=== PATIENT | female | born 1980 | race Caucasian/White ===

== ENCOUNTER 2018-08-26 17:51 | Emergency (ER) | payer MEDICARE, SELFPAY ==
[2018-08-26 17:59] VITALS: BP 118/89; PULSE 69; RESP 14; TEMP 36.7; O2SAT 98
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
[2018-08-26 18:27] LABS: Abs Immature Grans 0.02 k/cumm (0.0-0.09); Absolute Basophil Count 0.03 k/cumm (0.0-0.2); Absolute Eosinophil Count 0.07 k/cumm (0.0-0.7); Absolute Lymphocyte Count 2.45 k/cumm (1.2-3.4); Absolute Monocyte Count 1.06 k/cumm (0.11-0.7); Absolute Neutrophil Count 7.75 k/cumm (1.2-6.7); Basophils % 0.3; Eosinophils % 0.6; HCT 37.9 % (36.0-46.0); HGB 12.4 g/dL (12.0-15.5); Immature Grans % 0.2; Lymphocytes % 21.5; Mean Corp. HGB Concentration 32.7 g/dL (32.0-36.0); Mean Corpuscular Hemoglobin 26.3 pg (27.0-33.0); Mean Corpuscular Volume 80.5 fL (80-95); Mean Platelet Volume 8.8 fL (8.0-11.0); Monocytes % 9.3; Neutrophils % 68.1; Platelet Count 330 x1000/uL (130-400); RBC 4.71 m/cumm (4.00-5.20); RBC Distribution Width 14.5 % (11.7-14.6); White Blood Cell Count 11.38 k/cumm (4.4-10.8)
[2018-08-26 18:40] LABS: ALT 21 U/L (12-78); AST 21 U/L (15-37); Albumin 3.6 g/dL (3.4-5.0); Alkaline Phosphatase 72 U/L (46-116); Anion Gap 7.2 mmol/L (3-11); BUN 9 mg/dL (7-18); Bilirubin, Total 0.3 mg/dL (0.2-1.0); CO2 28.8 mmol/L (21.0-32.0); CREATININE 0.78 mg/dL (0.55-1.02); Calcium 8.8 mg/dL (8.5-10.1); Chloride 102 mmol/L (98-107); Glucose 107 mg/dL (70-100); Potassium 3.7 mmol/L (3.5-5.1); Sodium 138 mmol/L (136-145); Total Protein 7.6 g/dL (6.4-8.2)
[2018-08-26] MEDS: Omnipaque 350 MG/ML 100 ML BTL IJ (19:02)
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
[2018-08-26 20:29] VITALS: BP 133/70; PULSE 61; RESP 20; TEMP 36.7; O2SAT 98
== END 2018-08-26 20:33 | disposition home or self-care (01) ==
PROVIDERS: Emergency Provider Student in an Organized Health Care Education/Training Program; PCP Nurse Practitioner Family
DX: M54.2 Cervicalgia (principal); R07.89 Other chest pain; M25.512 Pain in left shoulder; M54.9 Dorsalgia, unspecified; Y04.0XXA Assault by unarmed brawl or fight, initial encounter
CPT/HCPCS: 36415; 74177; 80053; 81025; 99285; 70450; 71260; 72125; 85025; 99284; J3490; L0172

== ENCOUNTER 2019-05-20 12:47 | Emergency (ER) | payer MEDICARE, SELFPAY ==
[2019-05-20 13:09] VITALS: BP 155/84; PULSE 79; RESP 16; TEMP 36.5; O2SAT 99
--- NOTE | 2019-05-20 13:52 | ED.GENADUL_ITS ---
Discharge Plan Disposition Patient Disposition: HOME Condition: Stable Discharge Details Chief Complaint: GenMedical Clinical Impression: Dyspnea, Contact with potentially hazardous substance Primary Care Provider: None,None ED Provider: Carol Walton Home Meds and New Rx's Prescriptions: No Action Otc Migraine Med 2 tab PO PRN PRNRF: 0 Discharge Instructions Instructions: Dyspnea (ED) Additional Instructions: The most likely effects from exposure to the rustoleum include dizziness and shortness of breath which usually resolve quickly. As your oxygen level is normal and lungs are clear, it is expected that symptoms will continue to improve. Follow-up with your primary care doctor in 1 week as needed. Return to the emergency department with any worsening or new concerning symptoms. Discharge Data Discharge Date/Time-TO BE ENTERED AT DEPARTURE: 05/20/19 14:10 Discharge Physician: Carol Walton Medical Decision Making 39yo F presents for dizziness and shortness of breath that occurred after exposure to rustoleum enamel spray. Patient states she was spraying the inside of her freezer when shortly after, she felt dizziness and shortness of breath. She states her son had similar symptoms and they both went outside to the fresh air for approximately 30 minutes and she feels much better. She denies any symptoms at present. She states she came here for evaluation. BP minimally hypertensive, otherwise vitals within normal limits. Demonstrates no signs of respiratory distress. Normal oropharynx. Lungs clear. Case discussed with poison control who noted that usual side effects include dizziness and shortness of breath but likely resolve with time. As patient stepped into the fresh air, this is the most efficient recommended treatment. No other acute interventions or recommendations needed. Patient feels good to go home. Advised to follow up with the primary care doctor for re-evaluation as needed. Usual and customary return precautions given prior to discharge. HPI General Mode of arrival: ambulatory . Date/Time Provider Initiated Documentation: 05/20/19 13:10 . Limitations to Documentation: no limitations . Information obtained by: patient . History of Present Illness 39 year old F presents to the emergency department with the chief complaint of dizziness and shortness of breath after exposure to rustoleum enamel spray, Patient started experiencing this hour(s) (3) and it has been now resolved. other things that improve symptom(s), (going into fresh air for 30 minutes) No exacerbating factors reported . Patient notes shortness of breath; denies chest pain, cough, diaphoresis, fever/chills, headaches, loss of appetite, malaise, nausea/vomiting, rash, seizure, syncope and weakness. Patient did receive the following treatments prior to arrival, none Related Data Home Medications Medication Instructions Recorded Confirmed Otc Migraine Med 2 tab PO PRN PRN 04/17/15 08/26/18 Allergies Allergy/AdvReac Type Severity Reaction Status Date / Time methadone [Methadone] Allergy Severe heart stops Unverified 05/20/19 13:14 acetaminophen AdvReac Severe Tachycardia Unverified 05/20/19 13:14 [From Excedrin Back & Body] and violent shaking aspirin AdvReac Severe Tachycardia Unverified 05/20/19 13:14 [From Excedrin Back & Body] and violent shaking calcium carbonate AdvReac Severe Tachycardia Unverified 05/20/19 13:14 [From Excedrin Back & Body] and violent shaking tramadol AdvReac Intermediate Unverified 05/20/19 13:14 codeine AdvReac Nausea Unverified 05/20/19 13:14 Bee stings AdvReac Intermediate Swelling Uncoded 05/20/19 13:14 Cranberries AdvReac Intermediate Violent Uncoded 05/20/19 13:14 vomiting General Stated Complaint: GenMedical HAMIDA: 4 Review of Systems All systems reviewed & are unremarkable except as noted in HPI and below Constitutional Constitutional: Reports as per HPI, Denies chills and Denies fever(s) Eyes Eyes: Denies blurry vision ENT Ears, Nose, Mouth, and Throat: Reports dizziness, Denies sore throat and Denies throat swelling Cardiovascular Cardiovascular: Denies chest pain and Reports dyspnea Respiratory Respiratory: Denies cough and Reports dyspnea Gastrointestinal Gastrointestinal: Denies abdominal pain, Denies diarrhea and Denies vomiting Genitourinary Genitourinary: Denies hematuria and Denies dysuria Musculoskeletal Musculoskeletal: Denies back pain and Denies numbness Integumentary/Breasts Skin/Breast: Denies lesions and Denies rash Neurologic Neurologic: Reports dizziness, Denies focal weakness and Denies numbness Allergic/Immunologic Allergic/Immunologic: Denies throat swelling [facility] Medical History Abscess of labia majora (11/08/13) R sided - upper vestibular gland. Rx with abx. Chronic back pain s/p Henderson Reynaldo. Pt reports that it is broken. Not taking any meds for pain, no PCP. Heavy menses Declines Mirena. s/p 1st DepoProvera 08/2015. Scoliosis Tobacco use Surgical History section 2006 Diagnostic Laproscopy ovarian cyst. Dilation and curettage SAB Spinal Fusion with henderson rods that per pt's report, have become displaced. Family History Mother No problems noted. Social History Smoking/Tobacco Use Status: Current every day Tobacco Type: cigarettes Drug use: Occasionally Substance use type: marijuana Do you feel safe at home: No Do you feel safe in your relationship?: No Exam Const General: cooperative, healthy appearing and no acute distress HENMT Head: normal to inspection Ears: hearing grossly normal bilaterally and external ears normal General nose exam: external nose normal Face and sinus: normal facial exam Mouth: oral mucosae normal Throat: posterior oropharynx normal Eyes General: appearance normal, both eyes and all related structures EOM: EOM intact bilaterally Neck Neck: normal visual inspection and No submandibular swelling Lymphatic: no lymphadenopathy noted Chest Chest: normal inspection of the chest and no tenderness Resp Effort & Inspection: normal respiratory effort and able to speak in complete sentences Auscultation: clear to auscultation bilaterally Cardio Rate: regular rate Rhythm: regular rhythm GI Inspection: normal to inspection Palpation: soft, not firm, not rigid and nontender Auscultation: normal bowel sounds Skin General skin exam: no rashes or lesions noted Neuro General: alert, awake and oriented x3 Cognition: normal cognition Speech: speech normal Motor: muscle tone normal throughout Sensory Exam: no sensory deficits noted Extrem General: normal to inspection, full ROM, normal capillary refill, no calf tenderness bilaterally and no edema Psych Appearance: grossly normal Mental Status: mental status grossly normal Speech and Movement: speech and movement normal Affect: normal affect Course Vital Signs Vital signs: Vital Signs Temperature 97.7 F 05/20/19 13:09 Pulse 79 05/20/19 13:09 Respiratory Rate 16 05/20/19 13:09 Blood Pressure 155/84 H 05/20/19 13:09 Pulse Oximetry 99 05/20/19 13:09 Temperature 97.7 F 05/20/19 13:09 Temperature Source Skin 05/20/19 13:09 Pulse 79 05/20/19 13:09 Respiratory Rate 16 05/20/19 13:09 Respiratory Effort Non-Labored 05/20/19 13:09 Blood Pressure 155/84 H 05/20/19 13:09 Blood Pressure Position Sitting 05/20/19 13:09 Pulse Oximetry 99 05/20/19 13:09 Pain Level 6 05/20/19 13:09 Comment 05/20/19 13:09
[2019-05-20 14:17] VITALS: RESP 16
== END 2019-05-20 14:10 | disposition home or self-care (01) ==
PROVIDERS: Emergency Provider Physician Assistant
DX: R06.09 Other forms of dyspnea (principal); Z77.29 Contact with and (suspected) exposure to other hazardous substances
CPT/HCPCS: 99281

== ENCOUNTER 2019-07-26 17:02 | Emergency (ER) | payer MEDICARE, SELFPAY ==
[2019-07-26 17:06] VITALS: BP 119/90; PULSE 86; RESP 18; TEMP 36.7; O2SAT 97
--- NOTE | 2019-07-26 17:20 | ED.GENADUL_ITS ---
Discharge Plan Disposition Patient Disposition: HOME Condition: Good Discharge Details Chief Complaint: DentalOral Clinical Impression: Dental infection, Oral thrush Primary Care Provider: None,None ED Provider: Radha Delcid Home Meds and New Rx's Prescriptions: New clotrimazole 10 mg silvana 10 mg MM 5X/DAY 14 Days Qty: 70 RF: 0 penicillin V potassium 500 mg tablet 500 mg PO QID 7 Days Qty: 28 RF: 0 Continued Otc Migraine Med 2 tab PO PRN PRNRF: 0 Discharge Instructions Instructions: Dental Abscess (ED), Oral Candidiasis (ED) Additional Instructions: Please encourage water intake. Please take the clotrimazole troches and the penicillin as prescribed for thrush as well as possible dental infection. I would like for you to be followed up by primary care next week. Our healthcare representative will reach out to you on Monday to schedule follow-up appointment. If you develop fever/chills, swelling, increased pain or other new/worsening symptoms please seek care urgently once again. You also need follow-up with a dentist, attached his list of local dentist. Stand Alone Forms: PENDING COVID-19 TESTING Discharge Data Discharge Date/Time-TO BE ENTERED AT DEPARTURE: 07/26/19 17:35 Medical Decision Making Patient is a 39-year-old female presenting today with chief complaint of dental pain. She reports her pain is maximal in the left lower jawline but is also endorsing diffuse mouth discomfort. She reports that she has had oral candidiasis in the past and this feels quite similar. States she does have pain with eating but is able to swallow without any discomfort. Has been continue to try to hydrate. Is a 10 treat discomfort at home. She denies any history of HIV, immunocompromise. No new sexual contacts. Denies any recent travel. No shortness of breath. No recent fevers or chills. On exam, patient appears nontoxic. She does have focal tenderness of the left lower jawline with no appreciable swelling or fluctuance. I am concerned for possible emergence of a dental infection. In light of that, patient also has notable ulcers on the lateral aspect of the tongue as well as lateral aspects of the wall of the oropharynx. No changes in the posterior oropharynx. No swelling is appreciated. She is no swelling under the tongue or the tongue itself. She does have a thick white layer on the posterior aspect of the tongue consistent with the patient's concern for possible oral candidiasis. Fever glucose 126. Will prescribe antibiotic for possible dental infection as well as clotrimazole for her recurrent candidal infection. We did discuss my concern for immunocompromise but she is quite sure that she has never had any exposure to HIV, she denies any drug use again, no new sexual partners. I did advise that she should discuss this further with her primary care physician. I also encourage that she follow-up closely with a dentist and she will need further definitive care. She was given return precautions. Questions and concerns were addressed and she is agreement this plan. Patient did call back at the time of discharge and advised that she was not able to tolerate the charges and is requesting oral tablets. I did call in oral fluconazole to local pharmacy of her choice.. HPI General Mode of arrival: ambulatory . Date/Time Provider Initiated Documentation: 07/26/19 17:20 . Limitations to Documentation: no limitations . Information obtained by: patient and RN notes reviewed . History of Present Illness 39 year old F presents to the emergency department with the chief complaint of dental pain left lower jaw, described as severe and similar to prior episodes (hx ), with intensity rated at 10. Quality is described as sharp, and is localized to the mouth. Patient reports no radiation. Patient started experiencing this week(s) (1) and it has been constant. No relieving factors improve symptom(s), Eating worsens symptoms . Patient notes no other symptoms.; denies fever/chills, loss of appetite, nausea/vomiting, rash and shortness of breath. Patient did receive the following treatments prior to arrival, none Related Data Home Medications Medication Instructions Recorded Confirmed Otc Migraine Med 2 tab PO PRN PRN 04/17/15 07/26/19 clotrimazole 10 mg MM 5X/DAY 14 Days #70 tab 07/26/19 penicillin V potassium 500 mg PO QID 7 Days #28 tab 07/26/19 Previous Rx's Medication Instructions Recorded clotrimazole 10 mg MM 5X/DAY 14 Days #70 tab 07/26/19 penicillin V potassium 500 mg PO QID 7 Days #28 tab 07/26/19 Allergies Allergy/AdvReac Type Severity Reaction Status Date / Time methadone [Methadone] Allergy Severe heart stops Unverified 07/26/19 17:12 acetaminophen AdvReac Severe Tachycardia Unverified 07/26/19 17:12 [From Excedrin Back & Body] and violent shaking aspirin AdvReac Severe Tachycardia Unverified 07/26/19 17:12 [From Excedrin Back & Body] and violent shaking calcium carbonate AdvReac Severe Tachycardia Unverified 07/26/19 17:12 [From Excedrin Back & Body] and violent shaking tramadol AdvReac Intermediate Unverified 07/26/19 17:12 codeine AdvReac Nausea Unverified 07/26/19 17:12 Bee stings AdvReac Intermediate Swelling Uncoded 07/26/19 17:12 Cranberries AdvReac Intermediate Violent Uncoded 07/26/19 17:12 vomiting General Stated Complaint: DentalOral HAMIDA: 4 Review of Systems Constitutional Constitutional: Reports as per HPI, Denies chills, Denies fatigue, Denies fever(s), Denies headache(s) and Denies poor appetite Eyes Eyes: Denies change in vision and Denies irritation ENT Ears, Nose, Mouth, and Throat: Reports as per HPI, Reports dental pain, Denies dysphagia, Denies dizziness, Denies dry mouth, Denies ear discharge, Denies otalgia, Reports facial pain, Denies headache(s), Denies hoarseness, Denies lip swelling, Denies nasal congestion, Denies odynophagia and Denies sore throat Cardiovascular Cardiovascular: Reports as per HPI and Denies chest pain Respiratory Respiratory: Reports as per HPI and Denies cough Gastrointestinal Gastrointestinal: Reports as per HPI, Denies dysphagia, Denies nausea, Denies odynophagia and Denies vomiting Integumentary/Breasts Skin/Breast: Reports as per HPI, Denies erythema, Denies rash and Denies skin pain Neurologic Neurologic: Reports as per HPI, Denies dizziness and Denies headache(s) Endocrine Endocrine: Denies fatigue Allergic/Immunologic Allergic/Immunologic: Denies lip swelling [facility] Social History Smoking/Tobacco Use Status: Current every day Tobacco Type: cigarettes Drug use: Occasionally Substance use type: marijuana Do you feel safe at home: No Do you feel safe in your relationship?: No Exam Const General: cooperative, healthy appearing, comfortable, no acute distress, well developed and well groomed Nutritional Appearance: average body habitus and well nourished Orientation: alert and awake [facility] Head: normal to inspection, normocephalic and atraumatic Ears: hearing grossly normal bilaterally, external ears normal and TM's normal bilaterally General nose exam: external nose normal and nares normal Face and sinus: normal facial exam, sinuses nontender and face symmetric Mouth: abnormal oral mucosae (Patient has multiple ulcerative lesions on the lateral aspects of the tongu), lip normal, abnormal tongue, moist mucous membranes, no muffled voice and oral mucosa abnormal ulceration of the left buccal mucosa and of the right buccal mucosa; no white patches, no vesicles and no lacerations Teeth and gingiva: poor dentition (Pain and swelling near the #20 tooth, no area of fluctuance or evidence of ) Throat: posterior oropharynx normal, tonsils normal and uvula midline Eyes General: appearance normal, both eyes and all related structures Neck Neck: normal visual inspection, full ROM, no lymphadenopathy, supple and no anterior neck swelling Resp Effort & Inspection: normal respiratory effort, able to speak in complete sentences and no respiratory distress Auscultation: clear to auscultation bilaterally, no rales, no rhonchi and no wheezes Cardio Rate: regular rate Rhythm: regular rhythm Heart Sounds: S1 normal and S2 normal Skin General skin exam: no rashes or lesions noted Trauma: no lacerations or abrasions Neuro General: patient alert and patient awake Cognition: normal cognition Speech: speech normal Gait: normal gait Psych Appearance: grossly normal and well kempt Mental Status: mental status grossly normal Speech and Movement: speech and movement normal Course Vital Signs Vital signs: Vital Signs Temperature 36.7 C 07/26/19 17:06 Pulse 86 07/26/19 17:06 Respiratory Rate 18 07/26/19 17:06 Blood Pressure 119/90 07/26/19 17:06 Pulse Oximetry 97 07/26/19 17:06 Temperature 36.7 C 07/26/19 17:06 Temperature Source Skin 07/26/19 17:06 Pulse 86 07/26/19 17:06 Respiratory Rate 18 07/26/19 17:06 Respiratory Effort 07/26/19 17:11 Blood Pressure 119/90 07/26/19 17:06 Blood Pressure Position Sitting 07/26/19 17:06 Pulse Oximetry 97 07/26/19 17:06 Oxygen Delivery Method Room Air 07/26/19 17:06 Oxygen Flow Rate 0 07/26/19 17:06 Pain Level 10 07/26/19 17:06
== END 2019-07-26 17:35 | disposition home or self-care (01) ==
PROVIDERS: Emergency Provider Physician Assistant
DX: R68.84 Jaw pain (principal); R22.0 Localized swelling, mass and lump, head; K04.7 Periapical abscess without sinus; B37.0 Candidal stomatitis
CPT/HCPCS: 36416; 82962; 99283

== ENCOUNTER 2019-07-30 09:35 | Emergency (ER) | payer MEDICARE, SELFPAY ==
[2019-07-30 09:49] VITALS: BP 126/96; PULSE 106; RESP 16; TEMP 36.4; O2SAT 99
--- NOTE | 2019-07-30 10:43 | W.ED.GENAD ---
Discharge Plan Disposition Patient Disposition: HOME Condition: Stable Discharge Details Chief Complaint: RespSymp Clinical Impression: URI (upper respiratory infection) Primary Care Provider: None,None ED Provider: Farooq Pan Home Meds and New Rx's Prescriptions: No Action Otc Migraine Med 2 tab PO PRN PRNRF: 0 clotrimazole 10 mg silvana 10 mg MM 5X/DAY 14 Days Qty: 70 RF: 0 penicillin V potassium 500 mg tablet 500 mg PO QID 7 Days Qty: 28 RF: 0 Discharge Instructions Instructions: Upper Respiratory Infection (ED) Additional Instructions: At this time your symptoms are consistent with a viral upper respiratory infection. Is very unlikely that this is from coronavirus. At this time we do not have the indication that the CDC would recommend for testing. Out of abundance of precaution it would be reasonable to self quarantine yourself for a total of 14 days or until completely symptom-free for greater than 48 hours. It would be prudent to wear a mask at all times, always wash your hands frequently, follow-up closely with your primary care provider. You can always call their office first. If you notice any worsening of your symptoms, please call and then return immediately to the emergency department for reevaluation. Please call first and then follow-up with your primary care provider as soon as possible for reassessment and evaluation. Discharge Data Discharge Date/Time-TO BE ENTERED AT DEPARTURE: 07/30/19 10:53 Medical Decision Making Patient presents with dry cough and runny nose that began this morning. Entire family with similar symptoms. She denies any recent foreign travel or direct contact with anyone that is known, Covid positive. Patient denies any concerning travel to high risk area, known contact with chronic virus activity. She has none of the concerning red flags recommended by the CDC for otero virus testing including fever or shortness of breath. She looks notably clinically well and does not demonstrate evidence of respiratory distress, significant illness or sepsis. At this time with patient's history, exam, symptoms, they are not online or congruent with the current CDC recommendations for testing. Patient does not demonstrate symptoms indicative of admission or further observation here. Patient's clinical picture symptoms are likely secondary to a non-coronavirus of viral illness. Out of abundance precautions taking into account the current level of national concern, patient's entire clinical picture, the CDC recommendations, the patient can be discharged home. Option will be given for 14-day quarantine however at this time there is no clinical indication this is the coronavirus. I have recommended to the patient wearing of a mask for the next 14 days, as well as good handwashing techniques. I have extensively reviewed the treatment plan and discharge instructions with the patient. I have addressed all patient concerns at this time. The patient was made aware of what symptoms to monitor for that would warrant a return to the emergency department. I also discussed the importance of calling the patient's PCP, as well as the ED for any concerns or prior to return. Discussed the plan with patient, they demonstrate verbal understanding and agreement of our assessment and plan at this time Medical Records Medical records reviewed: Yes I reviewed the patient's medical records. HPI General Mode of arrival: ambulatory. Date/Time Provider Initiated Documentation: 07/30/19 09:36. Limitations to Documentation: no limitations. Information obtained by: patient. HPI Narrative: 59-year-old female with sneezing, dry cough that began this morning. Son is also being evaluated for the same symptoms here in the ER and the rest of her family at home has similar symptoms. She is already taking penicillin for a dental infection reports that is getting much improved. When she blew her nose today she noticed some blood-tinged mucus. She denies headache, fever, neck pain, sore throat, productive cough, abdominal pain, nausea, vomiting. No urinary or bowel symptoms. She denies any recent travel or known sick contacts with anyone, Covid positive Related Data Home Medications Medication Instructions Recorded Confirmed Otc Migraine Med 2 tab PO PRN PRN 04/17/15 07/30/19 clotrimazole 10 mg MM 5X/DAY 14 Days #70 tab 07/26/19 07/30/19 penicillin V potassium 500 mg PO QID 7 Days #28 tab 07/26/19 07/30/19 Previous Rx's Medication Instructions Recorded clotrimazole 10 mg MM 5X/DAY 14 Days #70 tab 07/26/19 penicillin V potassium 500 mg PO QID 7 Days #28 tab 07/26/19 Allergies Allergy/AdvReac Type Severity Reaction Status Date / Time methadone [Methadone] Allergy Severe heart stops Unverified 07/30/19 09:54 acetaminophen AdvReac Severe Tachycardia Unverified 07/30/19 09:54 [From Excedrin Back & Body] and violent shaking aspirin AdvReac Severe Tachycardia Unverified 07/30/19 09:54 [From Excedrin Back & Body] and violent shaking calcium carbonate AdvReac Severe Tachycardia Unverified 07/30/19 09:54 [From Excedrin Back & Body] and violent shaking tramadol AdvReac Intermediate Unverified 07/30/19 09:54 codeine AdvReac Nausea Unverified 07/30/19 09:54 Bee stings AdvReac Intermediate Swelling Uncoded 07/30/19 09:54 Cranberries AdvReac Intermediate Violent Uncoded 07/30/19 09:54 vomiting General Stated Complaint: RespSymp HAMIDA: 4 Review of Systems Constitutional Constitutional: Denies fatigue, Denies fever(s) and Denies headache(s) Eyes Eyes: Denies eye discharge ENT Ears, Nose, Mouth, and Throat: Denies headache(s) and Denies sore throat Cardiovascular Cardiovascular: Denies chest pain and Denies dyspnea Respiratory Respiratory: Reports cough and Denies dyspnea Gastrointestinal Gastrointestinal: Denies abdominal pain, Denies nausea and Denies vomiting Musculoskeletal Musculoskeletal: Denies myalgias Integumentary/Breasts Skin/Breast: Denies rash Neurologic Neurologic: Denies headache(s) Endocrine Endocrine: Denies fatigue [facility] Medical History Abscess of labia majora (11/08/13) R sided - upper vestibular gland. Rx with abx. Chronic back pain s/p Henderson Reynaldo. Pt reports that it is broken. Not taking any meds for pain, no PCP. Heavy menses Declines Mirena. s/p 1st DepoProvera 08/2015. Scoliosis Tobacco use Surgical History section 2007 Diagnostic Laproscopy ovarian cyst. Dilation and curettage SAB Spinal Fusion with henderson rods that per pt's report, have become displaced. Family History Mother No problems noted. Social History Smoking/Tobacco Use Status: Current every day Tobacco Type: cigarettes Drug use: Occasionally Substance use type: marijuana Do you feel safe at home: No Do you feel safe in your relationship?: No Exam Const General: cooperative, healthy appearing, comfortable and no acute distress Orientation: alert and awake HENIL Head: normal to inspection, normocephalic and atraumatic Ears: external ears normal, TM's normal bilaterally and EAC's normal General nose exam: nasal discharge clear Mouth: moist mucous membranes Throat: posterior oropharynx normal Eyes Conjunctivae: conjunctivae normal Neck Neck: normal visual inspection, full ROM, no lymphadenopathy, no meningeal signs, trachea midline and supple Resp Effort & Inspection: normal respiratory effort and able to speak in complete sentences Auscultation: clear to auscultation bilaterally Cardio Rate: regular rate Rhythm: regular rhythm Skin General skin exam: no rashes or lesions noted Neuro General: patient alert, patient awake, moves all extremities and no focal motor deficits Sensory Exam: no sensory deficits noted Psych Appearance: grossly normal Mental Status: mental status grossly normal Course Vital Signs Vital signs: Vital Signs Temperature 36.4 C L 07/30/19 09:49 Pulse 106 H 07/30/19 09:49 Respiratory Rate 16 07/30/19 09:49 Blood Pressure 126/96 H 07/30/19 09:49 Pulse Oximetry 99 07/30/19 09:49 Temperature 36.4 C L 07/30/19 09:49 Temperature Source Temporal Artery Scan 07/30/19 09:49 Pulse 106 H 07/30/19 09:49 Respiratory Rate 16 07/30/19 09:49 Respiratory Effort Non-Labored 07/30/19 10:27 Blood Pressure 126/96 H 07/30/19 09:49 Blood Pressure Position Sitting 07/30/19 09:49 Pulse Oximetry 99 07/30/19 09:49 Oxygen Delivery Method Room Air 07/30/19 09:49 Oxygen Flow Rate 0 07/30/19 09:49
== END 2019-07-30 10:53 | disposition home or self-care (01) ==
PROVIDERS: Emergency Provider Physician Assistant
DX: J06.9 Acute upper respiratory infection, unspecified (principal)
CPT/HCPCS: 99282

== ENCOUNTER 2019-08-31 21:06 | Emergency (ER) | payer MEDICARE, SELFPAY ==
--- NOTE | 2019-08-31 21:15 | NUR.NOTE ---
Nursing Note: Out to rear waiting room to get patient. No one there., Admissions unsure where she went
[2019-08-31 21:19] VITALS: BP 134/79; PULSE 91; RESP 16; TEMP 36.7; O2SAT 99
--- NOTE | 2019-08-31 21:37 | ED.GENADUL_ITS ---
Discharge Plan Disposition Patient Disposition: HOME Condition: Stable Discharge Details Chief Complaint: DentalOral Clinical Impression: Chronic dental pain Primary Care Provider: None,None ED Provider: Farooq Pan Home Meds and New Rx's Prescriptions: New amoxicillin 875 mg tablet 875 mg PO BID 9 Days Qty: 18 RF: 0 No Action Otc Migraine Med 2 tab PO PRN PRNRF: 0 Discharge Instructions Instructions: Dental Abscess (ED) Additional Instructions: Amoxicillin as directed. [id number] medications as directed for symptomatic control. Cool and/or warm compresses as tolerated. Please watch for new or worsening symptoms and return to the ER for any concerns. I cannot stress the importance of following up with a dentist, contact their office on Monday for prompt outpatient reevaluation Medical Decision Making 39-year-old female who is unable to see a dentist presents for ongoing dental pain which she reports is worsening. She is here requesting antibiotics. Reviewing her last record, it appears as though she received penicillin, will give amoxicillin 875. Given pharmacies are closed this evening and tomorrow will give her first 3 doses. Patient comfortable this plan and has no additional questions or concerns. We discussed the importance of outpatient dental follow-up. Medical Records Medical records reviewed: Yes I reviewed the patient's medical records. HPI General Mode of arrival: ambulatory . Date/Time Provider Initiated Documentation: 08/31/19 21:26 . Limitations to Documentation: no limitations . Information obtained by: patient . HPI Narrative: 39-year-old female with history of chronic back pain, currently still smoking, presents complaining of dental pain both left and right lower that have been going on for quite some time, given the pandemic unable to be seen by dentist. She is here requesting antibiotics. She has mild-moderate pain worse with eating. Denies fevers, ear pain, neck pain, sore throat or difficulty swallowing. No additional questions or concerns at this time Related Data Home Medications Medication Instructions Recorded Confirmed Otc Migraine Med 2 tab PO PRN PRN 04/17/15 07/30/19 amoxicillin 875 mg PO BID 9 Days #18 tab 08/31/19 Previous Rx's Medication Instructions Recorded amoxicillin 875 mg PO BID 9 Days #18 tab 08/31/19 Allergies Allergy/AdvReac Type Severity Reaction Status Date / Time methadone [Methadone] Allergy Severe heart stops Unverified 07/30/19 09:54 acetaminophen AdvReac Severe Tachycardia Unverified 07/30/19 09:54 [From Excedrin Back & Body] and violent shaking aspirin AdvReac Severe Tachycardia Unverified 07/30/19 09:54 [From Excedrin Back & Body] and violent shaking calcium carbonate AdvReac Severe Tachycardia Unverified 07/30/19 09:54 [From Excedrin Back & Body] and violent shaking tramadol AdvReac Intermediate Unverified 07/30/19 09:54 codeine AdvReac Nausea Unverified 07/30/19 09:54 Bee stings AdvReac Intermediate Swelling Uncoded 07/30/19 09:54 Cranberries AdvReac Intermediate Violent Uncoded 07/30/19 09:54 vomiting General Stated Complaint: DentalOral HAMIDA: 4 Review of Systems Constitutional Constitutional: Denies fever(s) Eyes Eyes: Denies eye discharge ENT Ears, Nose, Mouth, and Throat: Denies sore throat Respiratory Respiratory: Denies cough Integumentary/Breasts Skin/Breast: Denies rash [facility] Medical History Abscess of labia majora (11/08/13) R sided - upper vestibular gland. Rx with abx. Chronic back pain s/p Henderson Reynaldo. Pt reports that it is broken. Not taking any meds for pain, no PCP. Heavy menses Declines Mirena. s/p 1st DepoProvera 08/2015. Scoliosis Tobacco use Surgical History section 2007 Diagnostic Laproscopy ovarian cyst. Dilation and curettage SAB Spinal Fusion with henderson rods that per pt's report, have become displaced. Family History Mother No problems noted. Social History Smoking/Tobacco Use Status: Current every day Tobacco Type: cigarettes Drug use: Occasionally Substance use type: marijuana Do you feel safe at home: Yes Do you feel safe in your relationship?: Yes Exam Const General: cooperative, healthy appearing, comfortable and no acute distress Orientation: alert and awake [facility] Head: normal to inspection, normocephalic and atraumatic Ears: external ears normal, TM's normal bilaterally and EAC's normal Mouth: moist mucous membranes Teeth and gingiva: poor dentition (Tooth #30 cracked, tenderness around tooth 19 with dental carry) Throat: posterior oropharynx normal Eyes Conjunctivae: conjunctivae normal Neck Neck: normal visual inspection, full ROM, no lymphadenopathy, trachea midline and supple Resp Effort & Inspection: normal respiratory effort and able to speak in complete s entences Auscultation: clear to auscultation bilaterally Cardio Rate: regular rate Rhythm: regular rhythm Skin General skin exam: no rashes or lesions noted Neuro General: patient alert, patient awake, moves all extremities and no focal motor deficits Sensory Exam: no sensory deficits noted Psych Appearance: grossly normal Mental Status: mental status grossly normal Course Vital Signs Vital signs: Vital Signs Temperature 36.7 C 08/31/19 21:19 Pulse 91 H 08/31/19 21:19 Respiratory Rate 16 08/31/19 21:19 Blood Pressure 134/79 08/31/19 21:19 Pulse Oximetry 99 08/31/19 21:19 Temperature 36.7 C 08/31/19 21:19 Temperature Source Skin 08/31/19 21:19 Pulse 91 H 08/31/19 21:19 Respiratory Rate 16 08/31/19 21:19 Respiratory Effort 08/31/19 21:19 Blood Pressure 134/79 08/31/19 21:19 Pulse Oximetry 99 08/31/19 21:19 Pain Level 7 08/31/19 21:19
[2019-08-31] MEDS: Amoxicillin 875 MG TAB PO (21:53)
[2019-08-31 23:57] VITALS: BP 134/79; PULSE 91; RESP 16; O2SAT 99
== END 2019-08-31 21:55 | disposition home or self-care (01) ==
PROVIDERS: Emergency Provider Physician Assistant; PCP Nurse Practitioner Family
DX: R68.84 Jaw pain; G89.29 Other chronic pain
CPT/HCPCS: 99283

== ENCOUNTER 2019-11-29 19:15 | Emergency (ER) | payer MEDICARE, SELFPAY ==
--- NOTE | 2019-11-29 19:17 | W.ED.GENAD ---
Discharge Plan Disposition Patient Disposition: HOME Condition: Improving Discharge Details Chief Complaint: Headache Clinical Impression: Headache Primary Care Provider: Yanna Ramos ED Provider: Radha Delcid Home Meds and New Rx's Prescriptions: Continued Otc Migraine Med 2 tab PO PRN PRNRF: 0 Discharge Instructions Instructions: General Headache (ED) Additional Instructions: Your imaging and labs are reassuring here. You may continue with your aquh-uev-kwwyvyu migraine medication. If you develop increased pain, fever/chills, weakness, rash or other new/worsening symptom please seek care urgently once again. Please call your primary care on Monday to schedule follow-up appointment, number listed below. Would like for you to follow-up with them in the next 1 to 2 weeks for reevaluation and discuss ongoing care of your recurrent headaches. Referrals: Yanna Ramos [Primary Care Provider] - Discharge Data Discharge Date/Time-TO BE ENTERED AT DEPARTURE: 11/29/19 21:35 Medical Decision Making Patient is a thin female past medical history significant for chronic back pain, tobacco use, migraines. She presented with chief complaint of headache. She reports that she has a headache for the past 7 hours. She does report that she has a history of migraines. She did take her typical zpal-xsd-qrezlnx migraine medication proximally 1 hour into the headache but denies any improvement with this. States that migraine changed over the past hour and became significantly worse. His family generally fatigued and weak. She denies any visual changes. She is endorsing nausea. No vomiting. No change in bowel or bladder habits. No neck pain. Indicates the left frontal area is area of maximal discomfort. She also endorsing left knee pain. States that 1 week ago she injured her knee. Was evaluated by [facility] and was advised that she had ligament tear and meniscal injury. Was scheduled for MRI which has not been completed as of yet secondary to insurance issue. Patient has been wearing her Jermaine wrap. States that she did have some swelling which is since gone down with the assistance of the Jermaine wrap. Has not had increased times of being sedentary. No hormone use. Exam, patient appears nontoxic. Evidence of trauma. Normal neurologic exam. No nuchal rigidity. No rash. Exam of the knee is without significant abnormality. I not appreciate a large effusion. She is ligamentously intact. She has no sensory deficits. She has good strength in her lower extremity. She does endorse pain particularly with full flexion of the knee. Unable to perform Ronan's exam secondary to this. At this point, it is concerning that the patient is reporting that this is different than her typical migraines. However, this was a slow onset and I feel that the bleed is much less likely. She has no evidence of meningitis with no nuchal rigidity, rash. She appears nontoxic. She is endorsing severe discomfort. Will obtain labs, imaging. Patient has multitude of allergies. Will give Reglan and Benadryl. Labs are reviewed. No leukocytosis, stable CBC. Normal coags. CMP without significant abnormality. CT reviewed by radiologist: FINDINGS: Brain: Normal. No hemorrhage. Unremarkable white matter. No mass effect. Ventricles: Normal. No ventriculomegaly. Bones/joints: Unremarkable. No acute fracture. Sinuses: Visualized sinuses are unremarkable. No fluid levels. Mastoid air cells: Visualized mastoid air cells are well aerated. Soft tissues: Unremarkable. IMPRESSION: No acute intracranial abnormality. Discussed these findings with the patient. She is reporting that after the Reglan Benadryl her pain is down to a 2 from 9 out of 10. Patient I did discuss LP but again, the patient's history and exam is not consistent with bleed. She was given strict return precautions. She will follow-up with primary care next week for reevaluation. Should continue with her teay-cyw-llibibc medication for her migraine as this typically works quite well for her. All her questions and concerns were addressed and she is agreement this plan. [facility] General Mode of arrival: ambulatory. Date/Time Provider Initiated Documentation: 11/29/19 19:17. Limitations to Documentation: no limitations. Information obtained by: patient, RN notes reviewed and old records reviewed. History of Present Illness 39 year old F presents to the emergency department with the chief complaint of Headache, described as severe, with intensity rated at 9. Quality is described as aching, and is localized to the head. Patient reports no radiation. Patient started experiencing this hour(s) (6) and it has been constant. No relieving factors improve symptom(s), No exacerbating factors reported . Patient notes headaches, loss of appetite and nausea/vomiting (Endorses nausea, no vomiting); denies confusion, chest pain, diaphoresis, fever/chills, rash, seizure, shortness of breath, syncope and weakness. Patient did receive the following treatments prior to arrival, other (Nvrr-ivz-durpzug migraine relief at noon) Related Data Home Medications Medication Instructions Recorded Confirmed Otc Migraine Med 2 tab PO PRN PRN 04/17/15 11/29/19 Allergies Allergy/AdvReac Type Severity Reaction Status Date / Time methadone [Methadone] Allergy Severe heart stops Unverified 07/30/19 09:54 acetaminophen AdvReac Severe Tachycardia Unverified 07/30/19 09:54 [From Excedrin Back & Body] and violent shaking aspirin AdvReac Severe Tachycardia Unverified 07/30/19 09:54 [From Excedrin Back & Body] and violent shaking calcium carbonate AdvReac Severe Tachycardia Unverified 07/30/19 09:54 [From Excedrin Back & Body] and violent shaking tramadol AdvReac Intermediate Unverified 07/30/19 09:54 codeine AdvReac Nausea Unverified 07/30/19 09:54 Bee stings AdvReac Intermediate Swelling Uncoded 07/30/19 09:54 Cranberries AdvReac Intermediate Violent Uncoded 07/30/19 09:54 vomiting General HAMIDA: 4 Review of Systems Constitutional Constitutional: Reports as per HPI, Denies chills, Reports fatigue, Denies fever(s), Denies frequent falls, Reports headache(s), Denies snoring and Denies weakness Eyes Eyes: Reports as per HPI, Denies blurry vision, Denies change in vision and Reports photophobia ENT Ears, Nose, Mouth, and Throat: Denies vertigo, Reports headache(s) and Denies neck pain Cardiovascular Cardiovascular: Reports as per HPI, Denies chest pain, Denies lightheadedness, Denies radiating jaw, neck or arm pain, Denies dyspnea and Denies dyspnea on exertion Respiratory Respiratory: Reports as per HPI, Denies chest congestion, Denies cough, Denies dyspnea, Denies dyspnea on exertion, Denies snoring, Denies stridor and Denies wheezing Gastrointestinal Gastrointestinal: Reports as per HPI, Denies abdominal pain, Denies change in bowel habits, Reports nausea and Denies vomiting Musculoskeletal Musculoskeletal: Reports as per HPI, Denies back pain, Denies myalgias, Denies muscle cramps, Denies neck pain and Denies numbness Integumentary/Breasts Skin/Breast: Reports as per HPI and Denies rash Neurologic Neurologic: Reports as per HPI, Denies abnormal movements, Denies abnormal speech, Denies behavioral changes, Denies confusion, Denies vertigo, Denies frequent falls, Reports headache(s), Denies localized weakness, Denies numbness, Denies sensory deficit and Denies weakness Psychiatric Psychiatric: Denies behavioral changes and Denies confusion Endocrine Endocrine: Reports fatigue Allergic/Immunologic Allergic/Immunologic: Denies wheezing [facility] Social History Smoking/Tobacco Use Status: Current every day Tobacco Type: cigarettes Drug use: Occasionally Substance use type: marijuana Do you feel safe at home: Yes Do you feel safe in your relationship?: Yes Exam Const General: cooperative, healthy appearing, uncomfortable, no acute distress, well developed and well groomed Nutritional Appearance: average body habitus and well nourished Orientation: alert, awake and oriented x3 HENMT Head: normal to inspection, no palpable skull fracture, normocephalic and atraumatic Ears: hearing grossly normal bilaterally, external ears normal and TM's normal bilaterally General nose exam: external nose normal Mouth: oral mucosae normal and moist mucous membranes Throat: posterior oropharynx normal Eyes General: appearance normal, both eyes and all related structures Alignment and Position: alignment normal Periorbital: periorbital findings normal Eyelids: eyelids normal Sclera: sclerae normal Cornea: corneas normal Pupils: PERRL EOM: EOM intact bilaterally Neck Neck: normal visual inspection, full ROM, no lymphadenopathy and no meningeal signs Resp Effort & Inspection: normal respiratory effort, able to speak in complete sentences and no respiratory distress Auscultation: clear to auscultation bilaterally, no rales, no rhonchi and no wheezes Cardio Rate: regular rate Rhythm: regular rhythm Heart Sounds: S1 normal and S2 normal GI Inspection: normal to inspection and non-distended Palpation: soft, no hepatosplenomegaly, not firm, no guarding, not rigid and nontender Percussion: normal to percussion Auscultation: normal bowel sounds Back/Spine/Pelvis Cervical Spine: normal cervical lordosis and cervical ROM normal Skin General skin exam: no rashes or lesions noted Neuro General: patient alert, patient awake and patient oriented x3 Cranial Nerves: CN's II-XI intact bilaterally Cognition: normal cognition Speech: speech normal Gait: normal gait Motor: muscle tone normal throughout, strength 5/5 throughout, no pronator drift, no movement abnormalities noted and no fasciculations Sensory Exam: no sensory deficits noted Coordination: aunqom-xb-agcg test normal and kwsp-gw-dtbz test normal Extrem General: normal to inspection, capillary refill normal, no pedal edema and no calf tenderness Left lower extremity: normal to inspection, normal capillary refill, hip/thigh Details: normal to inspection, knee Details: normal to inspection, tenderness Location: of the medial joint line, abnormal ROM (Full extension, flexion to 45 degrees) and knee ligament exam normal Details: anterior drawer test normal, posterior drawer test normal, valgus stress test normal and varus stress test normal; pain with axial loading; no swelling, Ronan's Test not performed (Unable to perform), no abrasions, no lacerations, no ecchymosis, no crepitus, no deformity and no unusual warmth, lower leg Details: normal to inspection and no edema; no tenderness, no localized swelling, no palpable cords, no crepitus and no deformity, ankle Details: normal to inspection, no edema and normal ROM; no tenderness, no swelling, no warmth and achilles tendon exam normal and foot Details: normal capillary refill, toes with normal ROM and vascular exam Details: dorsalis pedis pulse present, posterior tibial pulse present and normal capillary refill; no tenderness; abnormal ROM Psych Appearance: grossly normal and well kempt Mental Status: mental status grossly normal Speech and Movement: speech and movement normal
[2019-11-29 19:22] VITALS: BP 145/97; PULSE 102; RESP 16; TEMP 36.4; O2SAT 99
--- NOTE | 2019-11-29 19:42 | DI.CT_ITS ---
EXAM: CT HEAD WO CLINICAL HISTORY: migraine worse than her typical, pain left front. TECHNIQUE: Imaging Protocol: Axial computed tomography images with coronal and sagittal reformatted images were created and reviewed COMPARISON: CT CT HEAD CERVICAL SPINE WO from 08/26/2018 FINDINGS: Ventricles and Extra axial spaces: Normal in size and morphology for the patient's age. Hemorrhage: None. Cerebral parenchyma: Normal. Midline shift: None. Brainstem/Cerebellum: Normal. Calvarium: Normal. Visualized Paranasal sinuses/Mastoids: Clear. Soft Tissues: Unremarkable. IMPRESSION: No acute intracranial process. RADIATION DOSE DELIVERED: Total DLP DATA REPOSITORY: All CT scans at this facility are submitted to the National Radiology Data Registry (NRDR) Dose Index Registry (DIR) with the [employer] (ACR). RADIATION OPTIMIZATION: All CT scans at this facility use at least one of these dose optimization te chniques: automated exposure control; mA and/or kV adjustment per patient size (includes targeted exa ms where dose is matched to clinical indication); or iterative reconstruction.
[2019-11-29] MEDS: Dexamethasone 10 MG/ML VIAL IVP (20:01)
[2019-11-29] MEDS: diphenhydrAMINE 50 MG/ML VIAL IVP (20:01)
[2019-11-29] MEDS: Metoclopramide 10 MG/2 ML VIAL IVP (20:01)
[2019-11-29] MEDS: Normal Saline Flush 10 ML SYR IVP (20:02)
[2019-11-29] MEDS: Normal Saline 1,000 ML 1000 ML IV (20:02)
[2019-11-29 20:07] LABS: Abs Immature Grans 0.03 k/cumm (0.0-0.09); Absolute Basophil Count 0.02 k/cumm (0.0-0.2); Absolute Eosinophil Count 0.16 k/cumm (0.0-0.7); Absolute Monocyte Count 0.87 k/cumm (0.11-0.7); Absolute Neutrophil Count 6.71 k/cumm (1.2-6.7); Basophils % 0.2; Eosinophils % 1.6; HCT 39.8 % (36.0-46.0); HGB 13.1 g/dL (12.0-15.5); Immature Grans % 0.3 %; Lymphocytes % 24.3; Mean Corp. HGB Concentration 32.9 g/dL (32.0-36.0); Mean Platelet Volume 8.9 fL (8.0-11.0); Monocytes % 8.5; Neutrophils % 65.1; Platelet Count 393 x1000/uL (130-400); RBC 5.04 m/cumm (4.00-5.20); RBC Distribution Width 15.8 % (11.7-14.6); White Blood Cell Count 10.29 k/cumm (4.4-10.8)
[2019-11-29 20:14] LABS: ALT 19 U/L (14-59); AST 16 U/L (15-37); Albumin 3.4 g/dL (3.4-5.0); Alkaline Phosphatase 83 U/L (46-116); Anion Gap 8.1 mmol/L (3-11); BUN 12 mg/dL (7-18); Bilirubin, Total 0.2 mg/dL (0.2-1.0); CO2 27.9 mmol/L (21.0-32.0); CREATININE 0.82 mg/dL (0.55-1.02); Calcium 8.7 mg/dL (8.5-10.1); Chloride 103 mmol/L (98-107); Glucose 112 mg/dL (74-106); Potassium 3.6 mmol/L (3.5-5.1); Sodium 139 mmol/L (136-145); Total Protein 7.2 g/dL (6.4-8.2)
[2019-11-29 20:23] LABS: PTT Activated 26.9 sec (21.0-31.4); Prothrombin Time 9.6 sec (9.3-11.0)
--- NOTE | 2019-11-29 21:20 | DI.VRAD_ITS ---
PROCEDURE INFORMATION: Exam: CT Head Without Contrast Exam date and time: 11/29/2019 8:21 PM Age: 39 years old Clinical indication: Headache; Aura effect not specified; Other: Unknown; Patient HX: Migraine worse than her typical pain left front TECHNIQUE: Imaging protocol: Computed tomography of the head without contrast. COMPARISON: No relevant prior studies available. FINDINGS: Brain: Normal. No hemorrhage. Unremarkable white matter. No mass effect. Ventricles: Normal. No ventriculomegaly. Bones/joints: Unremarkable. No acute fracture. Sinuses: Visualized sinuses are unremarkable. No fluid levels. Mastoid air cells: Visualized mastoid air cells are well aerated. Soft tissues: Unremarkable. IMPRESSION: No acute intracranial abnormality. Dictated and Authenticated by: Roshni Carrillo MD. Ordering:MARIA DEL ROSARIO Garcia MD
[2019-11-29 21:31] VITALS: BP 131/77; PULSE 59; RESP 18; TEMP 36.1; O2SAT 99
== END 2019-11-29 21:35 | disposition home or self-care (01) ==
PROVIDERS: Emergency Provider Physician Assistant; PCP Nurse Practitioner Family
DX: R51 Headache (principal); R11.0 Nausea; M25.562 Pain in left knee
CPT/HCPCS: 36415; 80053; 81025; 96361; 96374; 96375; 99284; 70450; 85025; 85610; 85730; J1100; J1200; J2765

== ENCOUNTER 2020-06-20 07:22 | Emergency (ER) | payer MEDICARE, SELFPAY ==
[2020-06-20 07:26] VITALS: BP 154/90; PULSE 103; RESP 16; TEMP 36.4; O2SAT 99
--- NOTE | 2020-06-20 07:44 | NUR.NOTE ---
R eye pH=8.Nursing Note:
[2020-06-20] MEDS: Tetracaine 0.5% 4 ML BTL (08:03)
[2020-06-20] MEDS: Fluorescein STRIPS 100/BOX 1 MG (08:12)
--- NOTE | 2020-06-20 08:14 | NUR.NOTE ---
pH between 7 and 8.Nursing Note:
--- NOTE | 2020-06-20 08:17 | ED.GENADUL_ITS ---
Discharge Plan Disposition Patient Disposition: HOME Condition: Good Discharge Details Clinical Impression: Chemical exposure of eye Primary Care Provider: Yanna Ramos ED Provider: Gloria Bahena Home Meds and New Rx's Prescriptions: New erythromycin 5 mg/gram (0.5 %) ointment 0.5 inch ophthalmic (eye) TID 3 Days RF: 0 Continued Otc Migraine Med 2 tab PO PRN PRNRF: 0 Discharge Instructions Additional Instructions: Follow-up with your eye doctor on Monday Use erythromycin ointment for the next 3 days 3 times daily in your affected eye Please return should you have change of vision, worsening pain, or with any new or progressing symptoms You may take Tylenol and ibuprofen as needed for discomfort You may have sensitivity to lights, you should wear sunglasses outside Medical Decision Making Visual acuity 20/20 with corrective lenses, a year, OD, OS Patient improved after irrigation pH initially 8, on recheck 7 Poison control contacted, recommended irrigation, do not feel as though there are any overtly harmful substances in the hair treatment serum but suspect alcohol may have been an irritant 1 L of LR used for irrigation Examined I was slightly embedded fluorescein parsed irrigation, no evidence of abrasion 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 HPI This 40-year-old female presents with accidental splash of viabrance care solution into her right eye just prior to arrival approximately 740. She denies any additional injuries. She has some burning in the eye since the event occurred. She denies any loss of vision in a contact lens use. She wears glasses reportedly. She was not wearing glasses at the time. She states the pain is exacerbated with blinking. She is some mild blurred vision but denies any current symptoms. Otherwise feels well General Date/Time Provider Initiated Documentation: 06/20/20 07:32 . Related Data Home Medications Medication Instructions Recorded Confirmed Otc Migraine Med 2 tab PO PRN PRN 04/17/15 11/29/19 erythromycin 0.5 inch OPHTHALMIC (EYE) TID 3 06/20/20 Days g Previous Rx's Medication Instructions Recorded erythromycin 0.5 inch OPHTHALMIC (EYE) TID 3 06/20/20 Days g Allergies Allergy/AdvReac Type Severity Reaction Status Date / Time methadone [Methadone] Allergy Severe heart stops Unverified 06/20/20 07:31 acetaminophen AdvReac Severe Tachycardia Unverified 06/20/20 07:31 [From Excedrin Back & Body] and violent shaking aspirin AdvReac Severe Tachycardia Unverified 06/20/20 07:31 [From Excedrin Back & Body] and violent shaking calcium carbonate AdvReac Severe Tachycardia Unverified 06/20/20 07:31 [From Excedrin Back & Body] and violent shaking tramadol AdvReac Intermediate Unverified 06/20/20 07:31 codeine AdvReac Nausea Unverified 06/20/20 07:31 Bee stings AdvReac Intermediate Swelling Uncoded 06/20/20 07:31 Cranberries AdvReac Intermediate Violent Uncoded 06/20/20 07:31 vomiting General Stated Complaint: EyeProblem HAMIDA: 3 Review of Systems Narrative: Review of systems negative x3 aside from where indicated in HPI [facility] Medical History (Updated 06/20/20 @ 08:30 by LISANDRA Jones) Abscess of labia majora (11/08/13) R sided - upper vestibular gland. Rx with abx. Chronic back pain s/p Henderson Reynaldo. Pt reports that it is broken. Not taking any meds for pain, no PCP. Heavy menses Declines Mirena. s/p 1st DepoProvera 08/2015. Scoliosis Tobacco use Surgical History section 2007 Diagnostic Laproscopy ovarian cyst. Dilation and curettage SAB Spinal Fusion with henderson rods that per pt's report, have become displaced. Family History Mother No problems noted. Social History Smoking/Tobacco Use Status: Current every day Tobacco Type: cigarettes Smoking risk assessment performed?: Yes Substance use type: does not use Do you feel safe at home: Yes Do you feel safe in your relationship?: Yes Exam Const General: cooperative and healthy appearing [facility] Head: normal to inspection Eyes Eyelids: eyelids normal Conjunctivae: conjunctivae normal Sclera: sclerae normal Cornea: corneas normal and fluorescein used; normal corneas Pupils: PERRL EOM: EOM intact bilaterally Course Vital Signs Vital signs: Vital Signs Temperature 36.4 C L 06/20/20 07:26 Pulse 103 H 06/20/20 07:26 Respiratory Rate 16 06/20/20 07:26 Blood Pressure 154/90 H 06/20/20 07:26 Pulse Oximetry 99 06/20/20 07:26 Temperature 36.4 C L 06/20/20 07:26 Temperature Source Skin 06/20/20 07:26 Pulse 103 H 06/20/20 07:26 Respiratory Rate 16 06/20/20 07:26 Respiratory Effort Non-Labored 06/20/20 07:26 Blood Pressure 154/90 H 06/20/20 07:26 Blood Pressure Position Sitting 06/20/20 07:26 Pulse Oximetry 99 06/20/20 07:26 Oxygen Delivery Method Room Air 06/20/20 07:26 Oxygen Flow Rate 0 06/20/20 07:26 Pain Level 4 06/20/20 07:26
[2020-06-20 09:02] VITALS: BP 155/96; PULSE 90; RESP 20; TEMP 36.6; O2SAT 99
== END 2020-06-20 09:05 | disposition home or self-care (01) ==
LOC: ER 08:43
PROVIDERS: Emergency Provider Physician Assistant
DX: T26.11XA Burn of cornea and conjunctival sac, right eye, initial encounter (principal)
CPT/HCPCS: 99284; 99283

== ENCOUNTER 2020-09-15 08:58 | Emergency (ER) | payer MEDICARE, SELFPAY ==
[2020-09-15 09:12] VITALS: BP 129/87; PULSE 93; RESP 16; TEMP 36.5; O2SAT 100
--- NOTE | 2020-09-15 09:27 | W.ED.GENAD ---
Discharge Plan Disposition Patient Disposition: HOME Condition: Stable Discharge Details Clinical Impression: Cat bite Primary Care Provider: None,None ED Provider: Farooq Pan Home Meds and New Rx's Prescriptions: New amoxicillin-pot clavulanate [Augmentin] 875-125 mg tablet 1 tab PO BID Qty: 20 RF: 0 Continued Otc Migraine Med 2 tab PO PRN PRNRF: 0 Discharge Instructions Instructions: Animal Bite (ED) Additional Instructions: Augmentin as directed. [id number] Tylenol and/or Motrin as directed for discomfort. Keep the scratches and bites clean and dry, change antibiotic dressing daily. Rest, elevate, cool and/or warm compresses every 2 hours for 20 minutes. Please watch for new or worsening symptoms and return to the ER for any concerns. Otherwise I recommend contacting your primary care provider later today to discuss wound reevaluation in the next 2-3 days Medical Decision Making 40-year-old female who is up-to-date on her tetanus status, presents for bilateral hand cat bite and scratches. Neuro, vascular, tendon intact. No signs of bleeding or obvious foreign body. There is no laceration that requires repair. Hands will be thoroughly cleaned and then appropriately dressed with antibiotic dressing. Will obtain x-rays of both hands to rule out any bony involvement or foreign body. Tetanus is up-to-date. She will be given 1 dose p.o. Augmentin now as well as 800 mg p.o. Motrin. The cat bite was properly called into the authorities in which the bite occurred, [place]. Given her multiple injuries, pain, I am concerned about increasing swelling. Patient unable to remove her ring on her own. Ring removed with ring cutter and then x-ray to be obtained. Ring was removed. Patient given p.o. Augmentin and Motrin. Wounds were thoroughly cleaned and dressed. X-rays of bilateral hands reviewed by me and confirmed by radiology as negative. Discussed work-up with patient, she has additional questions or concerns and is comfortable Medical Records Medical records reviewed: Yes I reviewed the patient's medical records. HPI General Mode of arrival: ambulatory. Date/Time Provider Initiated Documentation: 09/15/20 09:20. Limitations to Documentation: no limitations. Information obtained by: patient. HPI Narrative: This is a 40-year-old female, [id number], presenting to the ER today reporting that her cat which is approximately 1 year old bit and scratched both of her hands. This occurred just prior to arrival while she was trying to get her cat into a crate to bring to the vet for his annual shots immunizations. Patient reports moderate pain to both hands are worse with movement. She has minimal tingling in her left fifth digit. No active bleeding or obvious foreign body. Denies injury elsewhere. She has not taken any medication for her discomfort. Patient is unsure of her exact tetanus status. I was able to confirm that her most recent update was 2018. Related Data Home Medications Medication Instructions Recorded Confirmed Otc Migraine Med 2 tab PO PRN PRN 04/17/15 09/15/20 amoxicillin-pot clavulanate 1 tab PO BID #20 tab 09/15/20 [Augmentin] Previous Rx's Medication Instructions Recorded amoxicillin-pot clavulanate 1 tab PO BID #20 tab 09/15/20 [Augmentin] Allergies Allergy/AdvReac Type Severity Reaction Status Date / Time methadone [Methadone] Allergy Severe heart stops Unverified 09/15/20 09:19 acetaminophen AdvReac Severe Tachycardia Unverified 09/15/20 09:19 [From Excedrin Back & Body] and violent shaking aspirin AdvReac Severe Tachycardia Unverified 09/15/20 09:19 [From Excedrin Back & Body] and violent shaking calcium carbonate AdvReac Severe Tachycardia Unverified 09/15/20 09:19 [From Excedrin Back & Body] and violent shaking tramadol AdvReac Intermediate Unverified 09/15/20 09:19 codeine AdvReac Nausea Unverified 09/15/20 09:19 Bee stings AdvReac Intermediate Swelling Uncoded 09/15/20 09:19 Cranberries AdvReac Intermediate Violent Uncoded 09/15/20 09:19 vomiting General Stated Complaint: AnimalBite HAMIDA: 4 Review of Systems Constitutional Constitutional: Denies fever(s) and Denies weakness Musculoskeletal Musculoskeletal: Denies deformity, Denies arthralgias, Denies joint swelling, Denies numbness, Reports stiffness and Reports tingling Integumentary/Breasts Skin/Breast: Denies erythema Neurologic Neurologic: Denies numbness, Reports tingling and Denies weakness FORMERLY [facility], [facility] Medical History (Updated 09/15/20 @ 11:26 by LISANDRA Molina) Abscess of labia majora (11/08/13) R sided - upper vestibular gland. Rx with abx. Chronic back pain s/p Henderson Reynaldo. Pt reports that it is broken. Not taking any meds for pain, no PCP. Heavy menses Declines Mirena. s/p 1st DepoProvera 08/2015. Scoliosis Tobacco use Surgical History section 2006 Diagnostic Laproscopy ovarian cyst. Dilation and curettage SAB Spinal Fusion with henderson rods that per pt's report, have become displaced. Family History Mother No problems noted. Social History Smoking/Tobacco Use Status: Current every day Tobacco Type: cigarettes Smoking risk assessment performed?: Yes Alcohol Intake: current Alcohol Intake frequency: holidays/special occasions only Substance use type: does not use Do you feel safe at home: Yes Do you feel safe in your relationship?: Yes Exam Const General: cooperative, healthy appearing, comfortable and no acute distress Orientation: alert, awake and oriented x3 HENMT Head: normal to inspection, normocephalic and atraumatic Eyes General: appearance normal, both eyes and all related structures Conjunctivae: conjunctivae normal Neck Neck: normal visual inspection, trachea midline and supple Resp Effort & Inspection: normal respiratory effort and able to speak in complete sentences Cardio Rate: regular rate Rhythm: regular rhythm Skin General skin exam: no rashes or lesions noted Neuro General: patient alert, patient awake, moves all extremities and no focal motor deficits Cognition: normal cognition Speech: speech normal Gait: normal gait Motor: muscle tone normal throughout Sensory Exam: no sensory deficits noted Extrem General: full ROM and capillary refill normal Other: Bilateral hands with multiple scratches and puncture wounds. Neuro, vascular, tendon intact. Full range of motion. Normal capillary refill and normal two-point discrimination. No obvious bleeding or signs of foreign body. 5/5 strength bilaterally. No injury extends to the wrist. She does specifically have a puncture wound to the right third digit flexor aspect as well as the left hand second and fourth digit. Psych Appearance: grossly normal Mental Status: mental status grossly normal Course Vital Signs Vital signs: Vital Signs Temperature 36.5 C 09/15/20 09:12 Pulse 93 H 09/15/20 09:12 Respiratory Rate 16 09/15/20 09:12 Blood Pressure 129/87 09/15/20 09:12 Pulse Oximetry 100 09/15/20 09:12 Temperature 36.5 C 09/15/20 09:12 Temperature Source Skin 09/15/20 09:12 Pulse 93 H 09/15/20 09:12 Respiratory Rate 16 09/15/20 09:12 Respiratory Effort Non-Labored 09/15/20 09:12 Blood Pressure 129/87 09/15/20 09:12 Blood Pressure Position Sitting 09/15/20 09:12 Pulse Oximetry 100 09/15/20 09:12 Oxygen Delivery Method Room Air 09/15/20 09:12 Oxygen Flow Rate 0 09/15/20 09:12 Pain Level 10 09/15/20 09:12
--- NOTE | 2020-09-15 09:30 | DI.RAD_ITS ---
Exam(s) XR HAND RT COMPLETE EXAM: XR HAND RT COMPLETE CLINICAL HISTORY: cat bite. TECHNIQUE: 2D digital imaging was performed. COMPARISON: No exams were available for comparison FINDINGS: BONES: No acute fracture is present. No bony destructive lesion is seen. JOINTS: No dislocation present. Mild degenerative changes are seen in the hand. SOFT TISSUE: There is soft tissue swelling of the middle finger. No radiopaque foreign bodies are id entified. IMPRESSION: No acute fracture or radiopaque foreign body. DATA REPOSITORY: RADIATION DOSE DELIVERED:
--- NOTE | 2020-09-15 09:30 | DI.RAD_ITS ---
Exam(s) XR HAND LT COMPLETE EXAM: XR HAND LT COMPLETE CLINICAL HISTORY: cat bite. TECHNIQUE: 2D digital imaging was performed. COMPARISON: No exams were available for comparison FINDINGS: BONES: No acute fracture is present. No bony destructive lesion is seen. JOINTS: No dislocation present. Degenerative changes are seen in the hand and wrist. SOFT TISSUE: Normal. No radiopaque foreign bodies. IMPRESSION: No acute fracture, dislocation or radiopaque foreign body. DATA REPOSITORY: RADIATION DOSE DELIVERED:
[2020-09-15] MEDS: Ibuprofen 800 MG TAB PO (11:01)
[2020-09-15] MEDS: Amoxicillin 875/Clav. 125 TAB PO (11:01)
--- NOTE | 2020-09-16 01:14 | NUR.NOTE ---
Animal bite form faxed to Gild[facility] Hinojosa [facility] Health Officer.Nursing Note:
== END 2020-09-15 11:55 | disposition home or self-care (01) ==
PROVIDERS: Emergency Provider Physician Assistant
DX: S61.231A Puncture wound without foreign body of left index finger without damage to nail, initial encounter (principal); S61.232A Puncture wound without foreign body of right middle finger without damage to nail, initial encounter; S61.235A Puncture wound without foreign body of left ring finger without damage to nail, initial encounter; W55.03XA Scratched by cat, initial encounter; W55.01XA Bitten by cat, initial encounter
CPT/HCPCS: 99284; 73130; 99283

== ENCOUNTER 2020-09-21 18:58 | Outpatient (REF) | payer BC, SELFPAY | END 2020-09-21 18:59 | disposition home or self-care (01) | LOC: LBN 18:58 | PROVIDERS: Visit Provider Physician Assistant Medical | DX: L03.012 Cellulitis of left finger (principal); W55.01XD Bitten by cat, subsequent encounter | CPT/HCPCS: 87070; 87205 ==

== ENCOUNTER 2021-09-06 11:51 | Emergency (ER) | payer BC, SELFPAY ==
[2021-09-06 11:58] VITALS: BP 143/96; PULSE 96; RESP 16; TEMP 37.3; O2SAT 99
--- NOTE | 2021-09-06 12:00 | DI.CT_ITS ---
Exam(s) CT CERVICAL SPINE WO EXAM: CT CERVICAL SPINE WO CLINICAL HISTORY: pain s/p fall. TECHNIQUE: Imaging Protocol: Axial computed tomography images with coronal and sagittal reformatted images were created and reviewed COMPARISON: CT CT HEAD CERVICAL SPINE WO from 08/26/2018 FINDINGS: Bones: No acute fracture or subluxation. There is straightening of the normal cervical lordosis. Thi s may be due to muscle spasm or patient positioning. Cyjf-rx-dajumody degenerative changes are seen particularly at cervical spine from C5-6 through C6-C7. Soft Tissues: Unremarkable. Lung Apices: Clear. IMPRESSION: No acute fracture or subluxation in the cervical spine. RADIATION DOSE DELIVERED: 397.45mGy.cm Total DLP 397.45mGy.cm Total DLP DATA REPOSITORY: All CT scans at this facility are submitted to the National Radiology Data Registry (NRDR) Dose Index Registry (DIR) with the [employer] ([employer]). RADIATION OPTIMIZATION: All CT scans at this facility use at least one of these dose optimization te chniques: automated exposure control; mA and/or kV adjustment per patient size (includes targeted exa ms where dose is matched to clinical indication); or iterative reconstruction.
--- NOTE | 2021-09-06 12:00 | DI.CT_ITS ---
Exam(s) CT THORACIC SPINE WO EXAM: CT THORACIC SPINE WO CLINICAL HISTORY: pain s/p fall. TECHNIQUE: Imaging Protocol: Axial computed tomography images with coronal and sagittal reformatted images were created and reviewed. COMPARISON: CT CT thoracic lumbar spine wo from 08/26/2018 FINDINGS: Bones: No fractures or dislocations are seen. There is a right convex scoliosis of the thoracic spine . Henderson rods are seen throughout the spine. Soft tissues: The soft tissues of the chest are unremarkable. IMPRESSION: 1. No acute fracture or subluxation in the thoracic spine. 2. Results of this exam have been verbally communicated with provider. RADIATION DOSE DELIVERED: 620.71mGy.cm Total DLP 620.71mGy.cm Total DLP DATA REPOSITORY: All CT scans at this facility are submitted to the National Radiology Data Registry (NRDR) Dose Index Registry (DIR) with the [employer] (ACR). RADIATION OPTIMIZATION: All CT scans at this facility use at least one of these dose optimization te chniques: automated exposure control; mA and/or kV adjustment per patient size (includes targeted exa ms where dose is matched to clinical indication); or iterative reconstruction.
--- NOTE | 2021-09-06 12:14 | ED.GENADUL_ITS ---
Discharge Plan Disposition Patient Disposition: HOME Condition: Stable Discharge Details Clinical Impression: Cervical strain, Strain of thoracic back region Primary Care Provider: Ashlyn Rhodes ED Provider: Marco Antonio Sagastume Home Meds and New Rx's Prescriptions: New cyclobenzaprine 10 mg tablet 10 mg PO TID PRN (Reason: muscle spasm) Qty: 20 0RF Continued Otc Migraine Med 2 tab PO PRN [id number] Discharge Instructions Instructions: Cervical Strain (ED) Additional Instructions: Your cat scans did not show any acute findings follow up with your primary care provider within 1 week as scheduled if you feel more ill, have severe worsening pain or difficulty breathing return to the emergency department Medical Decision Making 41 yo female comes in with cc of neck and upper back pain s/p fall. A week ago she states she tripped on the top of her stairs and fell down. She has had neck pain and feels like her neck is swollen and that her joints in her neck are popping. She denies headache, chest pain, abdomen pain. Has upper midline back pain as well, no lower back pain. she has no motor or sensation deficits, caox 4, CN II-XII intact. She is tender midline on the lower c spine and upper T spine, no visible or palpable deformities. suspect cervical sprain but given the fall will obtain ct c spine and T spine and reassess. No L spine tenderness so do not feel L spine imaging indicated pt's imaging shows no acute findings, no subluxation or fractures. She now has tenderness on the left lateral c spine and no midline c spine pain. She is stable for d/c, has pcp appointment next week and return precautions given Differential Diagnosis Differential Diagnosis: strain, sprain, fracture Imaging Data Radiologic Study: Attestation: I personally reviewed and interpreted this imaging study as follows: Imaging: CT Scan Radiologist's impression: no acute findings on cervical spine or thoracic ct HPI General Mode of arrival: ambulatory . Date/Time Provider Initiated Documentation: 09/06/21 11:52 . Limitations to Documentation: no limitations . Information obtained by: patient . History of Present Illness 41 year old F presents to the emergency department with the chief complaint of neck pain, described as moderate, Quality is described as aching, Patient started experiencing this week(s) (1) and it has been constant. improves with Rest improves symptom(s), Movement worsens symptoms . Patient notes no other symptoms.. Patient did receive the following treatments prior to arrival, none Related Data Home Medications Medication Instructions Recorded Confirmed Otc Migraine Med 2 tab PO PRN PRN 04/17/15 09/15/20 cyclobenzaprine 10 mg tablet 10 mg PO TID PRN #20 tab 09/06/21 Previous Rx's Medication Instructions Recorded cyclobenzaprine 10 mg tablet 10 mg PO TID PRN #20 tab 09/06/21 Allergies Allergy/AdvReac Type Severity Reaction Status Date / Time methadone [Methadone] Allergy Severe heart stops Unverified 09/06/21 12:02 acetaminophen AdvReac Severe Tachycardia Unverified 09/06/21 12:02 [From Excedrin Back & Body] and violent shaking aspirin AdvReac Severe Tachycardia Unverified 09/06/21 12:02 [From Excedrin Back & Body] and violent shaking calcium carbonate AdvReac Severe Tachycardia Unverified 09/06/21 12:02 [From Excedrin Back & Body] and violent shaking tramadol AdvReac Intermediate Unverified 09/06/21 12:02 codeine AdvReac Nausea Unverified 09/06/21 12:02 Bee stings AdvReac Intermediate Swelling Uncoded 09/06/21 12:02 Cranberries AdvReac Intermediate Violent Uncoded 09/06/21 12:02 vomiting General Stated Complaint: Orthopedic HAMIDA: 3 Review of Systems All systems reviewed & are unremarkable except as noted in HPI and below Constitutional Constitutional: Denies chills, Denies fever(s) and Denies weakness Eyes Eyes: Denies loss of vision ENT Ears, Nose, Mouth, and Throat: Denies change in voice Cardiovascular Cardiovascular: Denies chest pain and Denies dyspnea Respiratory Respiratory: Denies cough and Denies dyspnea Gastrointestinal Gastrointestinal: Denies abdominal pain, Denies nausea and Denies vomiting Neurologic Neurologic: Denies loss of vision and Denies weakness PFSH All Active Problems (Updated 09/06/21 @ 14:02 by Marco Antonio Sagastume MD) Cat bite (Acute) Cervical strain (Acute) Strain of thoracic back region (Acute) Medical History (Updated 09/06/21 @ 14:02 by Marco Antonio Sagastume MD) Abscess of labia majora (11/08/13) R sided - upper vestibular gland. Rx with abx. Chronic back pain s/p Henderson Reynaldo. Pt reports that it is broken. Not taking any meds for pain, no PCP. Heavy menses Declines Mirena. s/p 1st DepoProvera 08/2015. Scoliosis Tobacco use Surgical History section 2007 Diagnostic Laproscopy ovarian cyst. Dilation and curettage SAB Spinal Fusion with henderson rods that per pt's report, have become displaced. Family History Mother No problems noted. Social History Smoking/Tobacco Use Status: Current every day Tobacco Type: cigarettes and e- cigarettes Smoking risk assessment performed?: Yes Alcohol Intake: current Alcohol Intake frequency: holidays/special occasions only Substance use type: does not use Do you feel safe at home: Yes Do you feel safe in your relationship?: Yes Exam Const General: no acute distress Orientation: alert HENMT Head: normal to inspection Ears: external ears normal General nose exam: external nose normal Mouth: moist mucous membranes Eyes General: appearance normal, both eyes and all related structures Neck Neck: normal visual inspection Resp Effort & Inspection: normal respiratory effort and able to speak in complete sentences Cardio Rate: regular rate Skin General skin exam: no rashes or lesions noted Neuro General: patient alert and patient oriented x3 Extrem General: normal to inspection Psych Mental Status: mental status grossly normal Course Vital Signs Vital signs: Vital Signs Temperature 37.3 C 09/06/21 11:58 Pulse 96 H 09/06/21 11:58 Respiratory Rate 16 09/06/21 11:58 Blood Pressure 143/96 H 09/06/21 11:58 Pulse Oximetry 99 09/06/21 11:58 Temperature 37.3 C 09/06/21 11:58 Temperature Source Temporal Artery Scan 09/06/21 11:58 Pulse 96 H 09/06/21 11:58 Respiratory Rate 16 09/06/21 11:58 Respiratory Effort 09/06/21 11:58 Blood Pressure 143/96 H 09/06/21 11:58 Blood Pressure Position Sitting 09/06/21 11:58 Pulse Oximetry 99 09/06/21 11:58 Oxygen Delivery Method Room Air 09/06/21 11:58 Oxygen Flow Rate 0 09/06/21 11:58 Pain Level 10 09/06/21 12:09
[2021-09-06 14:10] VITALS: BP 142/90; PULSE 100; RESP 16; TEMP 37.3; O2SAT 100
== END 2021-09-06 14:16 | disposition home or self-care (01) ==
PROVIDERS: Emergency Provider Emergency Medicine; PCP Nurse Practitioner Family
DX: S16.1XXA Strain of muscle, fascia and tendon at neck level, initial encounter (principal); S29.012A Strain of muscle and tendon of back wall of thorax, initial encounter; W10.8XXA Fall (on) (from) other stairs and steps, initial encounter
CPT/HCPCS: 81025; 99284; 72125; 72128; 99283

== ENCOUNTER 2021-09-08 02:52 | Outpatient (CLI) | payer BC, SELFPAY ==
--- NOTE | 2021-09-08 11:21 | DI.RAD_ITS ---
Exam(s) XR KNEE LT 3V AP,LAT,LORI EXAM: XR KNEE LT 3V AP,LAT,LORI CLINICAL HISTORY: JAILYN KNEE PAIN, M25.561. TECHNIQUE: 2D digital imaging was performed. Three views. COMPARISON: CR LEFT KNEE 3 VIEW COMPLETE from 10/15/2010 FINDINGS: BONES: No acute fracture is present. No bony destructive lesion is seen. JOINTS: Mild narrowing medial femoral tibial joint space. Mild to moderate periarticular spurring th roughout.. No joint effusion is seen. SOFT TISSUE: Normal. IMPRESSION: Nqyl-ih-oztuirpx degenerative changes. DATA REPOSITORY: RADIATION DOSE DELIVERED:
--- NOTE | 2021-09-08 11:22 | DI.RAD_ITS ---
Exam(s) XR KNEE RT 3V AP,LAT,LORI EXAM: XR KNEE RT 3V AP,LAT,LORI CLINICAL HISTORY: JAILYN KNEE PAIN, M25.561. TECHNIQUE: 2D digital imaging was performed. Three views. COMPARISON: CR XR KNEE LT 3V AP,LAT,LORI from 09/08/2021 FINDINGS: BONES: No acute fracture is present. No bony destructive lesion is seen. JOINTS: Mild medial femoral tibial joint space narrowing and mild periarticular spurring. No joint e ffusion is seen. Mild spurring at the articular aspect of the patella. SOFT TISSUE: Normal. IMPRESSION: Mild degenerative changes. DATA REPOSITORY: RADIATION DOSE DELIVERED:
--- NOTE | 2021-09-08 11:22 | DI.RAD_ITS ---
Exam(s) XR ANKLE LT COMPLETE EXAM: XR ANKLE LT COMPLETE CLINICAL HISTORY: LT ANKLE PAIN, M25.572 TECHNIQUE: 2D digital imaging was performed. Three views. COMPARISON: No exams were available for comparison FINDINGS: BONES: No acute fracture is present. No bony destructive lesion is seen. There is a large plantar ca lcaneal spur. There is minimal spurring at the medial malleolus. JOINTS:The ankle mortise is normally aligned. SOFT TISSUE: Normal. IMPRESSION: Large plantar calcaneal spur. DATA REPOSITORY: RADIATION DOSE DELIVERED:
== END 2021-09-08 03:12 ==
LOC: DI 02:52
PROVIDERS: PCP Nurse Practitioner Family; Visit Provider Nurse Practitioner Family
DX: M25.561 Pain in right knee (principal); M25.562 Pain in left knee; M25.572 Pain in left ankle and joints of left foot; M17.0 Bilateral primary osteoarthritis of knee; M77.32 Calcaneal spur, left foot
CPT/HCPCS: 73562; 73610

== ENCOUNTER 2022-08-17 01:36 | Outpatient (CLI) | payer BC, MEDICARE, SELFPAY ==
--- NOTE | 2022-08-17 11:12 | DI.RAD_ITS ---
Exam(s) XR LUMBAR SPINE AP, LAT EXAM: XR LUMBAR SPINE AP, LAT CLINICAL HISTORY: SCOLIOSIS, M41.9, BACK PAIN. TECHNIQUE: 2D digital imaging was performed. Five views. COMPARISON: CR LUMBAR SPINE COMPLETE from 01/27/[address] thoracic lumbar spine wo from 08/26/2018 FINDINGS: Rods are again noted in the thoracolumbar spine. Stable severe scoliosis. Vertebral body heights ar e maintained. Prominent facet joint degenerative changes at L4-5 and L5-S1. Disc spaces are maintai swati. No spondylolysis or spondylolisthesis is seen. IMPRESSION: Stable appearance scoliosis and Henderson rods. Interval worsening of facet joint degenerative max ges at L4-5 and L5-S1 since the previous exam. DATA REPOSITORY: RADIATION DOSE DELIVERED:
--- NOTE | 2022-08-17 11:12 | DI.RAD_ITS ---
Exam(s) XR CERVICAL SP ARTIS TRAUMA 2-3V EXAM: XR CERVICAL SP ARTIS TRAUMA 2-3V CLINICAL HISTORY: SCOLIOSIS, M41.9, NECK PAIN. TECHNIQUE: 2D digital imaging was performed. COMPARISON: CR CERV SP.WITH OBL OR FLEX/EXT from 01/27/2012 FINDINGS: BONES: No fracture or destructive lesion. Upper thoracic scoliosis with spinal rods in place. Cervi j carlos vertebral bodies are maintained in height. DISKS: There is narrowing of the C5-6 and C6-7 disc spaces with endplate osteophytes. The remaining disc spaces are maintained. There are mild facet joint degenerative changes. ALIGNMENT: There is straightening of the normal cervical lordosis the odontoid and atlantoaxial artic ulations are normal. SOFT TISSUE: Normal. The lung apices are clear. IMPRESSION: Degenerative changes at C5-6 and C6-7. DATA REPOSITORY: RADIATION DOSE DELIVERED:
== END 2022-08-17 01:56 ==
LOC: DI 01:37
PROVIDERS: PCP Nurse Practitioner Family; Visit Provider Physician Assistant Surgical
DX: M54.59 Other low back pain (principal); M47.817 Spondylosis without myelopathy or radiculopathy, lumbosacral region; M54.2 Cervicalgia; M50.322 Other cervical disc degeneration at C5-C6 level; M50.323 Other cervical disc degeneration at C6-C7 level; M47.812 Spondylosis without myelopathy or radiculopathy, cervical region; M41.85 Other forms of scoliosis, thoracolumbar region
CPT/HCPCS: 72040; 72100

== ENCOUNTER 2022-09-15 15:12 | Outpatient (REF) | payer BC, MEDICARE, SELFPAY ==
--- NOTE | 2022-09-15 12:30 | PAPFT_PTH ---
PATIENT: Melania Harvey LOC: [facility] U#:[id number] AGE/SX: 42/F ROOM: RE09/15/[address]: Carmen Pena MD : 1980 BED: DIS: 09/15/2022 SPEC #: [id number] RECD: 09/15/22 16:52 STATUS: RICHARD REQ #: [id number] BELKIS: 09/15/22 12:[address]: Carmen Pena DEPT: [facility] Cytology RECD BY: Gloria Saavedra ENTERED: 09/15/22 16:52 SP TYPE: PAPFT OTHR DR: Ashlyn Rhodes Tissues: 1 - CX/ENDOCX FOR PAP SMEARS Procedures: PAP THIN PREP/UVM Screening HPV DNA PROBE Comments: [id number]
== END 2022-09-15 15:13 | disposition home or self-care (01) ==
LOC: LBN 15:12
PROVIDERS: PCP Nurse Practitioner Family; Visit Provider Obstetrics & Gynecology
DX: Z12.4 Encounter for screening for malignant neoplasm of cervix (principal); Z11.51 Encounter for screening for human papillomavirus (HPV)
CPT/HCPCS: 88142; 87624

== ENCOUNTER → 2023-05-19 01:03 | Outpatient (CLI) | payer BC, MEDICARE, SELFPAY ==
--- NOTE | 2023-05-19 11:05 | DI.RAD_ITS ---
Exam(s) XR KNEE RT 3V AP,LAT,LORI EXAM: XR KNEE RT 3V AP,LAT,LORI CLINICAL HISTORY: PAIN RT KNEE M25.561. TECHNIQUE: 2D digital imaging was performed. Three views. COMPARISON: CR XR KNEE RT 3V AP,LAT,LORI from 09/08/2021 FINDINGS: BONES: No acute fracture is present. No bony destructive lesion is seen. JOINTS: Moderate to severe narrowing of the medial femoral tibial joint space, worsening from prior. Lateral femoral tibial joint space is maintained. Mild spurring laterally. No joint effusion is se en. SOFT TISSUE: Normal. IMPRESSION: Moderate degenerative changes of the medial femoral tibial joint space. DATA REPOSITORY: RADIATION DOSE DELIVERED:
== END ==
PROVIDERS: PCP Nurse Practitioner Family; Visit Provider Nurse Practitioner Family
DX: M17.11 Unilateral primary osteoarthritis, right knee (principal)
CPT/HCPCS: 73562

== ENCOUNTER 2023-11-15 13:17 | Outpatient (REF) | payer BC, MEDICARE, SELFPAY ==
[2023-11-15 22:35] LABS: Hemoglobin A1C 5.9 % (<5.7)
[2023-11-15 22:36] LABS: ALT 50 U/L (14-59); AST 26 U/L (15-37); Albumin 3.8 g/dL (3.4-5.0); Alkaline Phosphatase 123 U/L (46-116); Anion Gap 7.4 mmol/L (3-11); BUN 15 mg/dL (7-18); Bilirubin, Total 0.14 mg/dL (0.2-1.0); CO2 28.6 mmol/L (21.0-32.0); CREATININE 0.7 mg/dL (0.55-1.02); Calcium 9.5 mg/dL (8.5-10.1); Calculated LDL 92 mg/dL (<100); Chloride 104 mmol/L (98-107); Cholesterol 154 mg/dL (<200); Estimated GFR 109.98 (mL/min/1.73m2); Glucose 94 mg/dL (74-106); HDL Cholesterol 37 mg/dL (40-60); Potassium 4.2 mmol/L (3.5-5.1); Sodium 140 mmol/L (136-145); Total Protein 7.4 g/dL (6.4-8.2); Triglyceride 128 mg/dL (<150)
[2023-11-15 22:37] LABS: Microalb ug/mg Crea 5.1 ug/mg Cr
[2023-11-15 23:12] LABS: Bilirubin Negative (Negative); Blood Negative (Negative); Clarity Clear (Clear); Glucose Negative (Negative); Ketones Negative (Negative); Leukocyte Esterase Negative (Negative); Nitrite Negative (Negative); Specific Gravity >= 1.030 (1.005-1.025); Urobilinogen 0.2 mg/dL (Up to 0.2); pH 5.5 (5-8)
== END 2023-11-15 13:18 | disposition home or self-care (01) ==
LOC: NCHCN 13:17
PROVIDERS: PCP Nurse Practitioner Family; Visit Provider Nurse Practitioner Family
DX: I10 Essential (primary) hypertension (principal); E66.9 Obesity, unspecified; R79.89 Other specified abnormal findings of blood chemistry; R82.998 Other abnormal findings in urine
CPT/HCPCS: 80053; 80061; 81003; 82043; 82570; 83036

== ENCOUNTER 2024-03-29 01:57 | Outpatient (CLI) | payer MEDICARE, SELFPAY ==
--- OUTSIDE RECORDS SUMMARY | 2024-03-29 01:58 | XMS_ITS | Encounter Summary ---
Author Organization [facility] [place] [address] Care Team Providers Care At Home Independent Call Center Agent Name Role Phone Ashlyn Rhodes APRN Primary Care Provider +1 [phone] Reason for Referral * Consultation (Routine) - Closed Specialty Diagnoses / Procedures Referred By Ronn t Referred To Contact Dermatology Diagnoses Follicular acne Hirsutism Ashlyn Rhodes APRN [address] [place] [address] [facility] Dermatology [address] [place] [address] Referral ID Status Reason Start Date Expiration Date V isits Requested Visits Authorized [id number] Closed Consult, Test & Treat PCP Updated and/or Approved 02/09/2023 02/10/2024 12 12 Encounter Details Date Type Department Care Team (Late st Contact Info) Description 02/14/2023 Transcribe Orders eDH Incoming Referrals [phone] Ashlyn Rhodes APRN [address] [place] [address] Follicular acne; Hirsutism Social History Tobacco Use Types Packs/Day Years Used Date Smoking Tobacco: Former Cigarettes Q uit: 11/2021 Smokeless Tobacco: Never Sex and Gender Information Value Date Recorded Sex Assigned at Not on file Gender Identity Not on file Sexual Orientation Not on file documented as of this encounter Plan of Treatment Scheduled Referrals Name Type Priority Associated Diagnoses Order Schedule Referral to Dermatology Outpatient Referral Routine Follicular acne Hirsutism Ordered: 02/14/2023 documented as of this encounter Visit Diagnoses Diagnosis Follicular acne Other acne Hirsutism documented in this encounter Care Teams At Home Independent Call Center Agent Relationship Specialty Start Date End Date Ashlyn Rhodes APRN [address] [place] [address] PCP - General Family Medicine 07/11/22 documented as of this encounter
--- OUTSIDE RECORDS SUMMARY | 2024-03-29 01:58 | XMS_ITS | Encounter Summary ---
Author Organization [facility] Address [facility] [place] [address] Care Team Providers Care Automation Operator Name Role Phone Carmelo Ashlyn Bib SANDOVAL Primary Care Provider +1 [phone] Encounter Details Date Type Department Care Team (Late st Contact Info) Description 07/28/2022 Telephone [place] [address] Quentin Watson PA [facility] [place] [address] Social History Tobacco Use Types Packs/Day Years Used Date Smoking Tobacco: Former Cigarettes Q uit: 11/2021 Smokeless Tobacco: Never Sex and Gender Information Value Date Recorded Sex Assigned at Not on file Gender Identity Not on file Sexual Orientation Not on file documented as of this encounter Miscellaneous Notes * Telephone Encounter - Aster Dejesus - 08/29/2022 1:08 PM EDT for [facility] to fin out if CT L and T spine have been received. Per Eligio No imaging was yet scheduled. PSC: update telephone encounter when pt returns call Romana, Once imaging is schedule please schedule as below. Thank you, Aster PSC Scheduling Instructions ?? Provider: Sami Mendez MD ?? Visit Type: CON ?? Appt Note: CON, neck, low back pain, s/p T5-L3 fusion for scoliosis CT C & L- spine prior at [facility] & Xray Scoliosis Same Day ?? Imaging appt needed?: CT Scan's & Xray PSC to ask patient Screening Questions? N/A PSC to coordinate same day appt with Radiology? N/A ?? Additional Info Needed: ?? Schedule Xray And Dr. Mendez Consult same day after CT Scans are scheduled. * Telephone Encounter - Aster Dejesus - 08/25/2022 12:42 PM EDT [facility]. Order ID: [id number]. PA approved from 08/25/2022-10/23/2022. Sent CT L and C spine to [facility] through eDH. Postponing 1 wk to f/u on imaging * Telephone Encounter - Aster Dejesus - 08/25/2022 10:44 AM EDT Attempted to obtain PA through [facility]). Order ID: [id number]. Additional clinical information needed Sent information to [phone] Postponing until 08/29/22 to f/u on PA * Telephone Encounter - Soco Cooley - 08/25/2022 9:22 AM EDT XRs completed and in EDH * Telephone Encounter - Aster Dejesus - 08/19/2022 10:48 AM EDT LM for pt to find out if XR Lumbar spine and cervical spine have been completed. ?? PSC: please update telephone encounter when pt returns call?? Sent general attempts letter * Telephone Encounter - Aster Dejesus - 08/17/2022 8:42 AM EDT LM for pt to find out if XR Lumbar spine and cervical spine have been completed. ?? PSC: please update telephone encounter when pt returns call ?? * Telephone Encounter - Aster Dejesus - 08/15/2022 12:02 PM EDT LM for pt to find out if XR Lumbar spine and cervical spine have been completed. PSC: please update telephone encounter when pt returns call * Telephone Encounter - Aster Dejesus - 08/08/2022 1:28 PM EDT Sent XR C and L spine to [facility]. These must be completed prior to CT scans being approved. Spoke to pt and advised XR orders have been sent to [facility] to complete. Pt advised she would give us a call once XR's were completed/ scheduled. NS Secretaries: Once XR are completed please resubmit PA on CT scans through [facility]) * Telephone Encounter - Audrey Parker - 08/05/2022 8:42 AM EDT Janine from Radiology at [facility] called and states they received fax from insurance company last night denying CT's. Janine is inquiring if the provider will be doing a Peer to Peer and what the next step will be in the process? Please call to further discuss. [phone] * Telephone Encounter - Earnestine Castillo - 08/04/2022 11:54 AM EDT Baldo, Patient's CT C and L spine need further review for authorization. Could you please call [phone] to speak with a physician reviewer regarding this case? The case number is [id number]. Thank you, Ángela * Telephone Encounter - Earnestine Castillo - 08/04/2022 11:52 AM EDT Spoke with Payton duran [facility] regarding authorization for CT C and L spine. She advised further review is required and advised ordering provider can call and speak with a physician reviewer. Order number: [id number] * Telephone Encounter - Aster Dejesus - 08/04/2022 10:20 AM EDT Attempted to contact [employer] to complete PA for diagnostic imaging CT C spine). At this moment we aren't accepting calls then the phone line disconnects. Sent message to AB to advise. * Telephone Encounter - Audrey Parker - 08/03/2022 2:45 PM EDT Cecilia-Radiology [place] from [facility] called and was inquiring if the patient will need a Prior authorization for imaging, and if needed please fax to [phone] and if not needed please call to notify. * Telephone Encounter - Jacquie Zee - 08/03/2022 1:22 PM EDT Patient is calling looking for an updated on authorization. * Telephone Encounter - Aster Dejesus - 08/01/2022 10:37 AM EDT Spoke to intake national sales representative Nathaly Clarke at [facility]. They do not do [employer] MA. Called [employer]. On hold for over 40 min. With no answer. Will attempt to do PA 08/02/22. * Telephone Encounter - Aster Dejesus - 08/01/2022 9:57 AM EDT Per CRM on 07/29/22 PA will be needed for CT scan to be completed at [facility] * Telephone Encounter - Aster Dejesus - 08/01/2022 9:55 AM EDT Melania Harvey [[id number]] (Patient) Melania Harvey [[id number]] (Patient) Specialty Dept CRMs - Prior Auth Non-Med Summary: Prior Auth Non Tail Dogger LISANDRA Miller Prior Auth Non Tail Dogger LISANDRA Miller Relationship (if other than patient-full name): Janine, ??[facility] Diagnostic Imaging ?? Test/Imaging Name (Copy and Paste from e-DH): CT Cervical Spine wo Contrast, CT Lumbar Spine wo Contrast (Generic) Name of Facility that Test/Imaging will be Done At: [facility] City/Town & State of Facility: [place], [place] Date test/imaging is scheduled for not yet scheduled When is PA needed by anytime Name of Medical Insurance [facility]rier[facility] ID #: [id number] Insurance Carrier Phone #: Patient informed of the 7 to 10 business day turnaround time. * Telephone Encounter - Laurie Wynn - 07/28/2022 1:[address] Cervical and CT Lumbar spine to [facility] Postponing 1 wk to f/u on scheduling of CT Scans. [facility] Scheduling Instructions Provider: Sami Mendez MD Visit Type: CON Appt Note: CON, neck, low back pain, s/p T5-L3 fusion for scoliosis CT C & L- spine prior at [facility] & Xray Scoliosis Same Day Imaging appt needed?: CT Scan's & Xray PSC to ask patient Screening Questions? N/A PSC to coordinate same day appt with Radiology? N/A Additional Info Needed: Schedule Xray And Dr. Mendez Consult same day after CT Scans are scheduled. ~~~~~~~~~~~~~~~~~~~~~~~~~~~~~ Melania Harvey - 07/26/22 Quentin Watson PA Sent: Tricia July 26, 2022 ??2:34 PM To: P [facility] Computer Forensics Analyst ?? Follow-up and Dispositions Check-out Note: CT lumbar and cervical at [facility] w/ Dr. Mendez after, XR scoliosis views same day documented in this encounter Plan of Treatment Not on file documented as of this encounter Visit Diagnoses Not on filedocumented in this encounter Care Teams Automation Operator Relationship Specialty Start Date End Date Ashlyn Rhodes, VEST FRONT PRESSER [address] [place] [address] PCP - General Family Medicine 07/11/22 documented as of this encounter
--- OUTSIDE RECORDS SUMMARY | 2024-03-29 01:58 | XMS_ITS | Encounter Summary ---
Author [facility] [place] [address] Care Team Providers Care Mica Laminating Machine Feeder Name Role Phone Ashlyn Rhodes APRN Primary Care Provider +1 [phone] Encounter Details Date Type Department Care Team (Late st Contact Info) Description 08/04/2022 Orders [place] [address] Quentin Watson, LISANDRA [facility] [place] [address] Scoliosis, unspecified scoliosis type, unspecified spinal region Social History Tobacco Use Types Packs/Day Years Used Date Smoking Tobacco: Former Cigarettes Q uit: 11/2021 Smokeless Tobacco: Never Sex and Gender Information Value Date Recorded Sex Assigned at Not on file Gender Identity Not on file Sexual Orientation Not on file documented as of this encounter Plan of Treatment Not on file documented as of this encounter Visit Diagnoses Diagnosis Scoliosis, unspecified scoliosis type, unspecified spinal region documented in this encounter Care Teams Mica Laminating Machine Feeder Relationship Specialty Start Date End Date Ashlyn Rhodes APRN [address] [place] [address] PCP - General Family Medicine 07/11/22 documented as of this encounter
--- OUTSIDE RECORDS SUMMARY | 2024-03-29 01:58 | XMS_ITS | Encounter Summary ---
[place] [address] Care Team Providers Care Flight Agent Name Role Phone Ashlyn Rhodes APRN Primary Care Provider +1 [phone] Reason for Visit * Reason Onset Date Comments Appointment 09/05/2022 Encounter Details Date Type Department Care Team (Late st Contact Info) Description 09/05/2022 Tele[place] [id number] Aster Dejesus Appointment Social History Tobacco Use Types Packs/Day Years Used Date Smoking Tobacco: Former Cigarettes Q uit: 11/2021 Smokeless Tobacco: Never Sex and Gender Information Value Date Recorded Sex Assigned at Not on file Gender Identity Not on file Sexual Orientation Not on file documented as of this encounter Miscellaneous Notes * Telephone Encounter - Romana Chamorro MA - 09/05/2022 12:33 PM EDT Patient scheduled with Dr. Mendez 11/03/22 @ 11:40 [place]. LANG [place] prior documented in this encounter Plan of Treatment Not on file documented as of this encounter Visit Diagnoses Not on filedocumented in this encounter Care Teams Flight Agent Relationship Specialty Start Date End Date Ashlyn Rhodes APRN [address] [place] [address] PCP - General Family Medicine 07/11/22 documented as of this encounter
--- OUTSIDE RECORDS SUMMARY | 2024-03-29 01:58 | XMS_ITS | Encounter Summary ---
Author Organization [facility] [place] [address] Care Team Providers Care Puller Through Name Role Phone Ashlyn Rhodes LORI Primary Care Provider +1 -[phone] Encounter Details Date Type Department Care Team (Late st Contact Info) Description 08/17/2022 7:10 PM EDT Ancillary Procedure Radiology Library at [facility] [place] [id number] Jordon Ritter MD [facility] [place] [address] Social History Tobacco Use Types Packs/Day Years Used Date Smoking Tobacco: Former Cigarettes Q uit: 11/2021 Smokeless Tobacco: Never Sex and Gender Information Value Date Recorded Sex Assigned at Not on file Gender Identity Not on file Sexual Orientation Not on file documented as of this encounter Plan of Treatment Not on file documented as of this encounter Procedures Procedure Name Priority Date/Time Associated Diagnosis Comments FILM LIBRARY STORAGE ONLY DX SPINE Routine 08/17/2022 7:08 PM EDT documented in this encounter Results * Film Library- Storage Only DX Spine (08/17/2022 7:08 PM EDT) Narrative SOMMER FRANCES - 08/17/2022 7:08 PM EDT This exam is auto-finalizing. It's purpose is for storage only. Jordon Ritter MD [facility] FILM LIBRARY ORD ERABLES [place], [place] documented in this encounter Visit Diagnoses Not on filedocumented in this encounter Care Teams Puller Through Relationship Specialty Start Date End Date Ashlyn Rhodes APRN [address] [place] [address] PCP - General Family Medicine 07/11/22 documented as of this encounter
--- OUTSIDE RECORDS SUMMARY | 2024-03-29 01:58 | XMS_ITS | Encounter Summary ---
Author Organization [facility] [place] [address] Care Team Providers Care Load Blocker Name Role Phone Ashlyn Rhodes APRN Primary Care Provider [phone] [phone] Encounter Details Date Type Department Care Team (Late st Contact Info) Description 11/03/2022 11:40 AM EDT [place] [phone] Sami Mendez MD [facility] [place] [address] Adolescent idiopathic scoliosis, unspecified spinal region Social History Tobacco Use Types Packs/Day Years Used Date Smoking Tobacco: Former Cigarettes Q uit: 11/2021 Smokeless Tobacco: Never Tobacco Cessation:Counseling Given: Not Answered Sex and Gender Information Value Date Recorded Sex Assigned at Not on file Gender Identity Not on file Sexual Orientation Not on file documented as of this encounter Last Filed Vital Signs Vital Sign Reading Time Taken Comments Blood Pressure 155/111 11/03/2022 11:44 AM EDT Pulse 87 11/03/2022 11:44 AM EDT Temperature 36.5 ??C (97.7 ??F) 11/03/2022 11:44 AM E DT Respiratory Rate - - Oxygen Saturation 97% 11/03/2022 11:44 AM EDT Inhaled Oxygen Concentration - - Weight 95 kg (209 lb 6.4 oz) 11/03/2022 11:44 AM EDT Height 160 cm (5' 3) 11/03/2022 11:44 AM EDT Body Mass Index 37.09 11/03/2022 11:44 AM EDT documented in this encounter Progress Notes * Sami Mendez MD - 11/03/2022 11:40 AM EDT She is a 42-year-old who presents for evaluation of low back pain. She also has some pain in the cervical thoracic region. She underwent a T5-L3 instrumented fusion at age 13. She has had back pain throughout her adult life but it has worsened more recently. She has pain brought on with prolonged standing or activity. She is better with certain movements that she uses to snap my back in place. She is medically disabled and spends her time caring for her son who suffers from severe autism. Shemanages the household and provides care for her son. Her plain x-rays show a hook and kathy instrumentation construct spanning T5-L3. Her coronal balance is +4.5 cm and sagittal balance is +11.2 cm. I talked with her in detail about what would be required to revise her instrumentation construct. Removal of the old hardware along with multilevel osteotomies and at least 1 pedicle subtraction withinstrumentation from T4 to the pelvis would be required. Given the severity of the abnormalities and the very extensive prior fusion, I am doubtful that an ideal correction could be achieved. Additionally, I think she is quite functional at present despite having substantial pain. I therefore advised against surgery to revise her construct. She will return to the care of her pain specialist. documented in this encounter Plan of Treatment Not on file documented as of this encounter Visit Diagnoses Diagnosis Adolescent idiopathic scoliosis, unspecified spinal region documented in this encounter Care Teams Load Blocker Relationship Specialty Start Date End Date Ashlyn Rhodes APRN [address] [place] [address] PCP - General Family Medicine 07/11/22 documented as of this encounter
--- OUTSIDE RECORDS SUMMARY | 2024-03-29 01:58 | XMS_ITS | Encounter Summary ---
[place] [address] Care Team Providers Care Auto Air Conditioning Mechanic Name Role Phone Ashlyn Rhodes APRN Primary Care Provider +1 [phone] Encounter Details Date Type Department Care Team (Latest Contact Info) Description 11/03/2022 Travel Social History Tobacco Use Types Packs/Day Years [...] on filedocumented in this encounter Care Teams Auto Air Conditioning Mechanic Relationship Specialty Start Date End Date Ashlyn Rhodes APRN [address] [place] [address] PCP - General Family Medicine 07/11/22 documented as of this encounter
--- OUTSIDE RECORDS SUMMARY | 2024-03-29 01:58 | XMS_ITS | Encounter Summary ---
Author Organization [facility] [place] [address] Care Team Providers Care Hemodialysis Charge Nurse Name Role Phone Ashlyn Rhodes LORI Primary Care Provider +1 -[phone] Encounter Details Date Type Department Care Team (Late st Contact Info) Description 08/17/2022 7:15 PM EDT Ancillary Procedure Radiology Library at [facility] [place] [phone] Jordon Ritter MD [facility] [place] [address] Social History Tobacco Use Types Packs/Day Years [...] LIBRARY STORAGE ONLY DX SPINE Routine 08/17/2022 7:09 PM EDT documented in this encounter Results * Film Library- Storage Only DX Spine (08/17/2022 7:09 PM EDT) Narrative SOMMER FRANCES - 08/17/2022 7:09 PM EDT This exam is auto-finalizing. It's purpose is for storage only. Jordon Ritter MD [facility] FILM LIBRARY ORD ERABLES [place], [place] documented in this encounter Visit Diagnoses Not on filedocumented in this encounter Care Teams Hemodialysis Charge Nurse Relationship Specialty Start Date End Date Ashlyn Rhodes APRN [address] [place] [address] PCP - General Family Medicine 07/11/22 documented as of this encounter
--- OUTSIDE RECORDS SUMMARY | 2024-03-29 01:58 | XMS_ITS | Encounter Summary ---
Author Organization [facility] Address [facility] [place] [address] Care Team Providers Care Wrapper Selector Name Role Phone Ashlyn Rhodes APRN Primary Care Provider +1 -[phone] Encounter Details Date Type Department Care Team (Latest Contact Info) Description 11/03/2022 11:01 AM EDT - 11/03/2022 11:59 PM EDT Hospital Encounter XRay at [address] [place] [address] Jordon Ritter MD [facility] [place] [address] Scoliosis, unspecified scoliosis type, unspecified spinal region; Chronic back pain, unspecified back location, unspecified back pain laterality; History of spinal fusion; Neck pain, chronic Discharge Disposition: Home Social History Tobacco Use Types Packs/Day Years Used Date Smoking Tobacco: Former Cigarettes Q uit: 11/2021 Smokeless Tobacco: Never Sex and Gender Information Value Date Recorded Sex Assigned at Not on file Gender Identity Not on file Sexual Orientation Not on file documented as of this encounter Medications at Time of Discharge Medication Sig Dispensed Refills Start Date End Date naproxen (Naprosyn) 500 mg tablet Take 500 mg by mouth 2 times daily. Hasn't taken in awhile, because she can't get to the pharmacy 03/28/2022 documented as of this encounter Plan of Treatment Not on file documented as of this encounter Procedures Procedure Name Priority Date/Time Associated Diagnosis Comments XR SCOLIOSIS OR TOTAL SPINE 2 VIEW Routine 11/03/2022 11:28 AM EDT Scoliosis, unspecified scoliosis type, unspecified spinal region Chronic back pain, unspecified back location, unspecified back pain laterality History of spinal fusion Neck pain, chronic documented in this encounter Results * XR Scoliosis or Total Spine 2 view (11/03/2022 11:28 AM EDT) Anatomical Region Laterality Modality C-spine, T-spine, L-spine N/A Digita l Radiography Impressions 11/03/2022 2:54 PM EDT Expected appearance of posterior spinal fusion hardware. 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 Lower lumbar facet spondylosis. Thank you for letting us participate in the care of this patient. ??If you are a health care provider and have any questions regarding this report, please contact the number below. ??For patients who have questions please contact the health youth career specialist that requested your imaging first. ? Electronically signed by: Kenneth Farnsworth MD, [facility] ([phone]), at 11/03/2022 2:54 PM Narrative 11/03/2022 2:54 PM EDT EXAMINATION: XR SCOLIOSIS OR TOTAL SPINE 2 VIEW CLINICAL HISTORY: back pain, s/p T5-L3 fusion for scoliosis TECHNIQUE: 2 views of the total spine COMPARISON: 08/17/2022 FINDINGS: As before, patient post spinal fusion with posterior rods and laminar hooks T5-L3. There is persistent biphasic curvature of the thoracal lumbar spine. 31 degrees rightward, T4-T11. 20 degrees leftward, T11-L4. There is no acute bony abnormality. Risser 5. There is approximately 4 cm of leftward coronal imbalance and approximately 12 cm of anterior sagittal imbalance. Significant facet joint hypertrophy, sclerosis present L4-5 and L5-S1, similar to prior. Procedure Note Kenneth Farnsworth MD - 11/03/2022 EXAMINATION: XR SCOLIOSIS OR TOTAL SPINE 2 VIEW CLINICAL HISTORY: back pain, s/p T5-L3 fusion for scoliosis TECHNIQUE: 2 views of the total spine COMPARISON: 08/17/2022 FINDINGS: As before, patient post spinal fusion with posterior rods and laminarhooks T5-L3. There is persistent biphasic curvature of the thoracal lumbarspine. 31 degrees rightward, T4-T11. 20 degrees leftward, T11-L4. There is no acute bony abnormality. Risser 5. There is approximately 4 cm of leftward coronal imbalance and approximately 12 cm of anterior sagittal imbalance. Significant facet joint hypertrophy, sclerosis present L4-5 and L5-S1,similar to prior. IMPRESSION Expected appearance of posterior spinal fusion hardware. Biphasiccurvature of the thoracolumbar spine persists. Lower lumbar facet spondylosis. Thank you for letting us participate in the care of this patient. If youare a health care provider and have any questions regarding this report,please contact the number below. For patients who have questions please contactthe health youth career specialist that requested your imaging first. Electronically signed by: Kenneth Farnsworth MD, [facility]([phone]), at 11/03/2022 2:54 PM Jordon Ritter MD IMG DX ORDERABLES documented in this encounter Visit Diagnoses Diagnosis Scoliosis, unspecified scoliosis type, unspecified spinal region Chronic back pain, unspecified back location, unspecified back pain laterality History of spinal fusion Arthrodesis status Neck pain, chronic Cervicalgia documented in this encounter Care Teams Wrapper Selector Relationship Specialty Start Date End Date Ashlyn Rhodes APRN [address] [place] [address] PCP - General Family Medicine 07/11/22 documented as of this encounter
--- OUTSIDE RECORDS SUMMARY | 2024-03-29 01:58 | XMS_ITS | Clinical Summary ---
Author Organization [facility] [place] [address] Care Team Providers Care Spray Mixer Name Role Phone Ashlyn Rhodes APRN Primary Care Provider [phone] Allergies Active Allergy Reactions Criticality Noted Date Comments Tramadol Other (See Comments) High 07/26/2022 Did not have a good experience Medications Medication Sig Dispensed Refills Start Date End Date Status naproxen (Naprosyn) 500 mg tablet Take 500 mg by mouth 2 times daily. Hasn't taken in awhile, because she can't get to the pharmacy 03/28/2022 Active Active Problems No known active problems Social History Tobacco Use Types Packs/Day Years Used Date Smoking Tobacco: Former Cigarettes Q uit: 11/2021 Smokeless Tobacco: Never Tobacco Cessation:Counseling Given: Not Answered Sex and Gender Information Value Date Recorded Sex Assigned at Not on file Gender Identity Not on file Sexual Orientation Not on file Last Filed Vital Signs Vital Sign Reading [...] Mass Index 37.09 11/03/2022 11:44 AM EDT Plan of Treatment Health Maintenance Due Date Last Done Comments HIV screen 02/17/1998 Hepatitis C Screening 02/17/1998 Lipid Screening 02/17/1998 Hepatitis B vaccine (0-59 yrs) (1) 02/17/1999 Tetanus/Diphtheria/Pertussis Vaccines (1 - Tdap) 02/17 HPV test 02/17/2010 PAP Smear 02/17/2010 Breast Cancer Share Decision Needed 2020 Breast Cancer screening 2020 Diabetes Screening (HgbA1C or Glucose) 2020 Covid-19 Vaccine (1 - 2023- season) 2024 Influenza (Flu) vaccine (1 o f 1 - Influenza standard series) 01/14/2024 Care Teams Spray Mixer Relationship Specialty Start Date End Date Ashlyn Rhodes APRN [address] [place], [place] [id number] PCP - General Family Medicine 07/11/22
--- OUTSIDE RECORDS SUMMARY | 2024-03-29 01:58 | XMS_ITS | Encounter Summary ---
Author Organization [facility] [place] [id number] Care Team Providers Care Government Guard Name Role Phone Ashlyn Rhodes APRN Primary Care Provider [phone] Encounter Details Date Type Department Care Team (Late st Contact Info) Description 09/20/2022 Ancillary Procedure Radiology Library at [facility] [place] [phone] Ashlyn Rhodes APRN [address] [place], [place] [address] Social History Tobacco Use Types Packs/Day Years [...] Associated Diagnosis Comments FILM LIBRARY STORAGE ONLY CT SPINE Routine 09/20/2022 12:00 AM EDT documented in this encounter Results * Film Library- Storage Only CT Spine (09/20/2022 12:00 AM EDT) Narrative [facility] - 09/21/2022 3:27 PM EDT This exam is auto-finalizing. It's purpose is for storage only. Ashlyn Rhodes APRN IMG FILM LIBRARY ORDERABLES [facility] [place], [place] documented in this encounter Visit Diagnoses Not on filedocumented in this encounter Care Teams Government Guard Relationship Specialty Start Date End Date Ashlyn Rhodes APRN [address] [place] [address] PCP - General Family Medicine 07/11/22 documented as of this encounter
--- OUTSIDE RECORDS SUMMARY | 2024-03-29 01:59 | XMS_ITS | Encounter Summary ---
[place] [address] Care Team Providers Care Medical Clerical Assistant Name Role Phone Ashlyn Rhodes APRN Primary Care Provider [phone] Reason for Referral * Consultation (Routine) - Closed Specialty Diagnoses / Procedures Referred By Contac t Referred To Contact Neurosurgery Diagnoses Scoliosis, unspecified scoliosis type, unspecified spinal region Jami Barton MD [address] [place] [address] [facility] [place] [facility] [address] [place] [phone] Referral ID Status Reason Start Date Expiration Date V isits Requested Visits Authorized [id number] Closed Consult, Test & Treat PCP Updated and/or Approved 07/11/2022 07/11/2023 6 6 Encounter Details Date Type Department Care Team (Latest Contact Info) Description 07/11/2022 Transcribe Orders eDH Incoming Referrals [phone] Jami Barton MD [address] [place] [address] Scoliosis, unspecified scoliosis type, unspecified spinal region Social History Tobacco Use Types Packs/Day Years Used Date Smoking Tobacco: Never Assessed Sex and Gender Information Value Date Recorded Sex Assigned at Not on file Gender Identity Not on file Sexual Orientation Not on file documented as of this encounter Plan of Treatment Scheduled Referrals Name Type Priority Associated Diagnoses Orde r Schedule Referral to Neurosurgery Outpatient Referral Routine Scoliosis, unspecified scoliosis type, unspecified spinal region Ordered: 07/11/2022 documented as of this encounter Visit Diagnoses Diagnosis Scoliosis, unspecified scoliosis type, unspecified spinal region documented in this encounter Care Teams Medical Clerical Assistant Relationship Specialty Start Date End Date Ashlyn Rhodes APRN [address] [place] [address] PCP - General Family Medicine 07/11/22 documented as of this encounter
--- OUTSIDE RECORDS SUMMARY | 2024-03-29 01:59 | XMS_ITS | Encounter Summary ---
Author Organization [facility] [place] [address] Care Team Providers Care Quality Assurance Consultant Name Role Phone Ashlyn Rhodes APRN Primary Care Provider [phone] Reason for Visit * Consultation (Routine) - Closed Specialty Diagnoses / Procedures Referred By Contac t Referred To Contact Neurosurgery Diagnoses Scoliosis, unspecified scoliosis type, unspecified spinal region Jami Barton MD [address] [place] [address] [facility] [facility] [address] [place] [phone] Referral ID Status Reason Start Date Expiration Date V isits Requested Visits Authorized [id number] Closed Consult, Test & Treat PCP Updated and/or Approved 07/11/2022 07/11/2023 6 6 Encounter Details Date Type Department Care Team (Latest Contact Info) Description 07/26/2022 11:20 AM EDT TH Visit (TeleHealth) [place] [address] Quentin Watson PA [facility] [place] [address] Scoliosis, unspecified scoliosis type, unspecified spinal region; Chronic back pain, unspecified back location, unspecified back pain laterality; History of spinal fusion; Neck pain, chronic Social History Tobacco Use Types Packs/Day Years Used Date Smoking Tobacco: Former Cigarettes Q uit: 11/2021 Smokeless Tobacco: Never Tobacco Cessation:Counseling Given: Not Answered Sex and Gender Information Value Date Recorded Sex Assigned at Not on file Gender Identity Not on file Sexual Orientation Not on file documented as of this encounter Progress Notes * Quentin Watson PA - 07/26/2022 11:20 AM EDT Images from the original note were not included. SECTION OF NEUROSURGERY Telehealth Consultation Note 07/26/2022 Jami Barton MD [address] [place] [address] RE: Melania Harvey : [address] Barton: Thank you for referring your patient Melania Harvey to the Neurosurgery Clinic at [facility] for evaluation of chronic back pain Ms. Harvey is a pleasant 42 y.o. female s/p T5 to L3 fusion with Henderson rods scoliosis performed ~1992 at [facility]. I can find no records pertaining to her surgery in our current EMR and electronic legacy records. She presents with complains of chronic back pain - neck, between the shoulder blades, and lower lumbar spine. She does not have any significant radicular complaints. She reports having been seen previously at [facility], [facility], and [facility] for her ongoing back pain. A report from Dr. Rosas from 2010 is scanned into her EMR, but other than this there are no reports of these visits. This report indicates she had been evaluated by their orthopaedic surgeon who recommended that she be evaluated by Dr. Rosas, a pain specialist. He offered injections in the form of trigger point injections, MBB, and possible RFAs however it was noted that she likely already had such treatments along those lines previously which were not helpful and she declined further injection therapy. Today, Ms. Resendiz is unable to elaborate on the type of injections she had and is reports that she never had spinal injections. More currently she has tried physical therapy which has not been helpful. I reviewed the CT lumbar spine from [address] thoracic spine from 08/2021. She has fairly extensive degenerative changes in the lumbar spine and at the lumbosacral junction inferior to her spinal hardware. In addition she has predominantly right sided facet arthropathy above the level of her fusion. I do not have cervical spine imaging for review. She is interested in reviewing surgical options for her chronic back pain. I will update her lumbar CT and obtain cervical CT and standing scoliosisXR and have her follow up with my surgical colleague for evaluation of extension of her fusion. PAST MEDICAL HISTORY: Tobacco dependence Migraine OA of the knees Anxiety Depression Obesity Chronic back pain PAST SURGICAL HISTORY: Per HPI SOCIAL HISTORY: Social History Tobacco Use ??? Smoking status: Former Types: Cigarettes Quit date: 11/2021 Years since quittin.7 ??? Smokeless tobacco: Never Vaping Use ??? Vaping Use: Every day ??? Substances: Flavoring ??? Devices: RefPidgonble tank FAMILY HISTORY: No family history on file. CURRENT MEDICATIONS: ??? naproxen (Naprosyn) 500 mg tablet ALLERGIES: Allergies Allergen Reactions ??? Tramadol Other (See Comments) Did not have a good experience REVIEW OF SYSTEMS: Per HPI It was my pleasure to have consulted with Ms. Harvey today. Thank you again for your referral. Please don't hesitate to contact me if you have any further questions. Patient verbally consents to this telephone visit and understands that this visit may be billed, similar to a clinic office visit. I provided care to the patient today via telephone call. The total time associated with this visit was 40 minutes. Sincerely, Quentin Watson PA-C, MS Physician Smog Technician [facility] Department of Neurosurgery [address] [place] [phone] CC: Ashlyn Rhodes APRN CC: Jami Barton MD [address] [place] [address] This message is confidential, intended only for the named recipient(s) and may contain information that is privileged or exempt from disclosure under applicable law. If you are not the intended recipient(s), you are notified that the dissemination, distribution or copying of this information is strictly prohibited. If you received this message in error, please notify the sender then delete this message. documented in this encounter Plan of Treatment Not on file documented as of this encounter Results * XR Scoliosis or [...] who have questions please contact the health care trainer that requested your imaging first. ? Narrative 11/03/2022 2:54 PM EDT EXAMINATION: XR [...] patients who have questions please contactthe health care trainer that requested your imaging first. Jordon Ritter MD IMG DX ORDERABLES documented in this encounter Visit Diagnoses Diagnosis Scoliosis, unspecified scoliosis type, unspecified spinal region Chronic back pain, unspecified back location, unspecified back pain laterality History of spinal fusion Arthrodesis status Neck pain, chronic Cervicalgia Scoliosis, unspecified scoliosis type, unspecified spinal region Chronic back pain, unspecified back location, unspecified back pain laterality History of spinal fusion Arthrodesis status Neck pain, chronic Cervicalgia documented in this encounter Care Teams Quality Assurance Consultant Relationship Specialty Start Date End Date Ashlyn Rhodes APRN [address] [place] [address] PCP - General Family Medicine 07/11/22 documented as of this encounter
--- OUTSIDE RECORDS SUMMARY | 2024-03-29 01:59 | XMS_ITS | Encounter Summary ---
Author Organization [facility] [place] [address] Care Team Providers Care Professor Of Literature Name Role Phone Unavailable Primary Care Provider Unavailabl e Encounter Details Date Type Department Care Team (Late st Contact Info) Description 08/26/2018 Ancillary Procedure Radiology Library at [facility] [place] [address] Ashlyn Rhodes APRN [address] [place] [address] Social History Tobacco Use Types Packs/Day Years [...] FILM LIBRARY STORAGE ONLY CT SPINE Routine 08/26/2018 12:00 AM EDT documented in this encounter Results * Film Library- Storage Only CT Spine (08/26/2018 12:00 AM EDT) Narrative RAD - 07/12/2022 1:28 PM EST This exam is auto-finalizing. It's purpose is for storage only. Ashlyn Rhodes APRN IMG FILM LIBRARY ORDERABLES [place], [place] documented in this encounter Visit Diagnoses Not on filedocumented in this encounter
--- OUTSIDE RECORDS SUMMARY | 2024-03-29 01:59 | XMS_ITS | Encounter Summary ---
Author Organization [facility] [place] [address] Care Team Providers Care Park Maintenance Technician Name Role Phone Unavailable Primary Care Provider Unavailabl e Encounter Details Date Type Department Care Team (Late st Contact Info) Description 09/06/2021 Ancillary Procedure Radiology Library at [facility] [place] [phone] Ashlyn Rhodes APRN [address] [place] [address] Social History Tobacco Use Types Packs/Day Years [...] FILM LIBRARY STORAGE ONLY CT SPINE Routine 09/06/2021 12:00 AM EDT documented in this encounter Results * Film Library- Storage Only CT Spine (09/06/2021 12:00 AM EDT) Narrative [facility] - 07/16/2022 9:10 PM EST This exam is auto-finalizing. It's purpose is for storage only. Ashlyn Rhodes APRN IMG FILM LIBRARY ORDERABLES [place], [place] documented in this encounter Visit Diagnoses Not on filedocumented in this encounter
--- OUTSIDE RECORDS SUMMARY | 2024-03-29 01:59 | XMS_ITS | Encounter Summary ---
Author Organization [facility] [place] [address] Care Team Providers Care Institutional Commodity Analyst Name Role Phone Unavailable Primary Care Provider Unavailabl e Encounter Details Date Type Department Care Team (Late st Contact Info) Description 09/08/2021 Ancillary Procedure Radiology Library at [facility] [place] [place] [phone] Ashlyn Rhodes APRN [address] [place] [address] Social History Tobacco Use Types Packs/Day Years [...] Diagnosis Comments FILM LIBRARY STORAGE ONLY DX KNEE Routine 09/08/2021 12:00 AM EDT documented in this encounter Results * Film Library- Storage Only DX Knee (09/08/2021 12:00 AM EDT) Narrative [facility] - 07/16/2022 9:11 PM EST This exam is auto-finalizing. It's purpose is for storage only. Ashlyn Rhodes APRN IMG FILM LIBRARY ORDERABLES [place], [place] documented in this encounter Visit Diagnoses Not on filedocumented in this encounter
--- OUTSIDE RECORDS SUMMARY | 2024-03-29 01:59 | XMS_ITS | Encounter Summary ---
Author Organization [facility] [place] [address] Care Team Providers Care Academic Computing Director Name Role Phone Unavailable Primary Care Provider Unavailabl e Encounter Details Date Type Department Care Team (Late st Contact Info) Description 09/08/2021 12:05 AM EDT Ancillary Procedure Radiology Library at [facility] [place] [phone] Ashlyn Rhodes APRN [address] [place] [address] Social History Tobacco Use Types Packs/Day Years [...] LIBRARY STORAGE ONLY DX KNEE Routine 09/08/2021 12:05 AM EDT documented in this encounter Results * Film Library- Storage Only DX Knee (09/08/2021 12:05 AM EDT) Narrative [facility] - 07/16/2022 9:11 PM EST This exam is auto-finalizing. It's purpose is for storage only. Ashlyn Rhodes APRN IMG FILM LIBRARY ORDERABLES [facility] [place] documented in this encounter Visit Diagnoses Not on filedocumented in this encounter
--- OUTSIDE RECORDS SUMMARY | 2024-03-29 01:59 | XMS_ITS | Continuity of Care Document ---
Author Organization [facility] Address [address] [place] [address] Assessment Encounter Date Assessment Date Assessment LastModified by Organization Details LastModified Time 03/18/2024 03/18/2024 Flu vaccine: provide today Comirnaty: declines Td: current- last 2017 PCV20: n/a non smoker Pap/ HPV: last 2022, neg Mammogram: declines CRC: n/a, r/t age Follow-up in 1 Months. Call or RTO sooner if needs arise. Not available 03/18/2024 09:06:45 Plan of Treatment Reminders Order Date Submit Date Provider Last Modified By Organization Details Last Modified Time Details Appointments Follow Up 30 2023 10:30A M ASHLYN GATICA Not available Not available Not available Lab magnesium , serum or plasma 2023 024 [facility] ([facility]), [address] [place] [address] [place], [address], 03/25/2024 09:34:16 TSH, serum, reflex free T4 [facility] [address] [place] [address] [place], [address], 03/25/2024 09:34:17 CMP, serum or plasma 2023 024 [facility] ([facility]), [address] [place] [address] [place], [address], 03/25/2024 09:34:17 HbA1c (hemoglob in A1c), blood 2023 [facility] ([facility]), [address] [place] [address] [place], [address], 03/25/2024 09:34:17 lipid panel, serum 2023 [facility] ([facility]), [address] [place] [address] [place], [address], 03/25/2024 09:34:17 urinalysi s complete, reflex culture 2023 [facility] ([facility]), [address] [place] [address] [place], [address], 03/25/2024 09:34:17 microalbu min/creat inine, mass ratio, urine 2023 [facility] ([facility]), [address] [place] [address] [place], [address], 03/25/2024 09:34:17 Referral None recorded. Procedures None recorded. Surgeries None recorded. Imaging clinical research monitor - ziopatch- needs 30 day testing. 2023 ATHENAFAX [facility], [address] [place] [address] [place], [address], 03/18/2024 09:41:10 Medication Orders propranol ol 10 mg tablet 2023 SAMANTHA [id number], [address] [place] [address], [id number], 03/18/2024 09:54:28 Patient TargetsNo targets recorded. Patient Instructions Encounter Date Encounter Id Patient Instructions Last Modified By Organization Details Last Modified Time 03/18/2024 [id number] Dear Melania, Thank you for visiting us today. We appreciate your commitment to improving your health and addressing your concerns. Here is a summary of the oglesby instructions and recommendations from today's consultation: - Medication: Start taking Propranolol 10 mg twice daily to help manage your blood pressure, anxiety, and headaches. This prescription has been sent to [facility]. - Cardiac Monitoring: Wear a clinical research monitor continuously for 30 days to track any irregularities. Keep a diary of any discomfort, noting the date, time, and duration. - Blood Work: Complete the recommended blood tests to check for electrolyte abnormalities and thyroid hormone levels. This will also include checks for diabetes and cholesterol. - Diet and Lifestyle: Focus on making healthy food choices and staying active as tolerated. Avoid high sodium foods and try to fully cease smoking. - Follow-Up: Schedule a follow-up appointment in one month to review your blood pressure and assess how you are tolerating the medication. - Flu Vaccination: You received your flu shot today. Please ensure to follow these instructions closely and do not hesitate to contact us if you have any questions or concerns. We look forward to seeing you at your next appointment. Best regards, Oliver [email or web address] Not available 03/18/2024 09:54:18 Reason for Referral None Reported. Problems Name Problem SNOMED Code Status Onset Date Resolution Date Notes Provider Name and Address Organization Details Recorded Time Chest pain 35197552 Active 2023 ASHLYN GATICA APRN [address], [place], [address] , [facility] 4 08:45:17 Pain of ear 753178231 Active 2023 ASHLYN GATICA APRN [address], [place], [address] , [facility] 4 09:53:07 Pain in thoracic spine 484752817 Active 2006 Suyapa heredia [facility] 4 13:50:31 Tobacco user 032284018 Active 2006 Suyapa heredia [facility] 4 13:50:50 Irregula r periods 95109985 Active 2011 Suyapa heredia [facility] 4 13:50:23 Headache 56537924 Active 2020 Suyapaher [facility] 4 13:50:09 Pain of left knee joint 70653844679 4107 Active 2020 [facility] 4 13:50:35 Family history of malignan t neoplasm of ovary 494050249 Active 2021 [facility] 4 13:50:06 Obesity 898449812 Active 2021 [facility] 4 13:50:27 Adjustme nt disorder with mixed anxiety and depresse d mood 833376824 Active 2021 [facility] 4 13:50:01 Panic disorder 170403450 Active 2021 [facility] 4 13:50:42 Pain of right knee joint 46521132742 4100 Active 2021 [facility] 4 13:50:39 Acne 12574248 Active 2021 [facility] 4 13:49:56 Scoliosi s deformit y of spine 183561572 Active 2022 [facility] 4 13:50:46 Insomnia 855927218 Active 2022 [facility] 4 13:50:19 Housing problems Active 2022 [facility] 4 13:50:16 Cellulit is 539700823 Completed 202007/23/2021 Problem Code: L03.90; Problem Code Type: ICD-10; Not Available [facility] 3 03:56:07 Osteoart hritis 516552596 Completed 202007/23/2021 Problem Code: M19.90; Problem Code Type: ICD-10; Not Available [facility] 3 03:56:08 Arthralg ia of the ankle and/or foot 345923807 Completed 202110/04/2021 Problem Code: M25.572; Problem Code Type: ICD-10; Not Available [facility] 3 03:56:09 Pain in left foot 46172973268 9107 Completed 201707/23/2021 Problem Code: M79.672; Problem Code Type: ICD-10; Not Available [facility] 3 03:56:11 Chronic back pain 450400393 Completed 200602/08/2023 07/24/19 22 - Comments only - 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 Has hx of scoliosi s with surgical kathy placemen t. PT has made her pain worse over the years. Flexeril works well for her, will do a short script. Consider adding cymbalta or gabapent in; consider at next visit. Not Available [facility] 3 03:56:12 Traumati c or non-trau matic injury 900761988 Completed 201707/23/2021 Problem Code: T14.8; Problem Code Type: ICD-10; Not Available [facility] 3 03:56:15 Cat bite Completed 202007/23/2021 Problem Code: W55.01xD ; Problem Code Type: ICD-10; Not Available [facility] 3 03:56:15 Hand pain 87523999 Completed 202010/04/2021 Problem Code: M79.643; Problem Code Type: ICD-10; Not Available [facility] 3 03:56:17 Disorder of nasal sinus 4922058 Completed 202110/04/2021 Not Available [facility] 3 03:56:17 Wound 666517944 Active 2022 ASHLYN GATICA, STATUARY PAINTER [address], [place], [address] , [facility] 3 05:44:00 Constipa tion 62265154 Active 2022 ASHLYN GATICA APRN [address], [place], [address] , [facility] 3 14:08:54 Nicotine dependen ce 02104308 Active 2006 [facility] Tu null, [facility] 4 20:21:04 Dental caries 27890904 [facility] 2022 [facility], [facility] 4 20:20:57 Allergic rhinitis 84404195 Active 2022 [facility], [facility] 4 20:20:54 Hirsutis m 029624202 Active 2022 [facility] null, [facility] 4 20:21:01 Pelvic and perineal pain 270131763 Completed 202202/09/2023 Problem Code: R10.2; Problem Code Type: ICD-10; Not Available [facility] 4 05:37:03 Pelvic congesti on syndrome 85326984 Completed 202202/09/2023 Not Available [facility] 4 05:37:03 Essentia l hyperten venancio 82420558 Active 2023 ASHLYN GATICA APRN [address], [place], [address] , [facility] 4 15:02:05 Prediabe heriberto 766809498 Active 2023 ASHLYN GATICA APRN [address], [place], [address] , [facility]. 4 08:01:16 Alkaline phosphat ase above referenc e range 641085868 Active 2023 ASHLYN GATICA APRN [address], [place], [address] , [facility] 4 20:48:01 Problem Notes None recorded. Medical Equipment None Reported. Allergies Allergen ID Allergen Name Allergen Category Reaction Reaction Severity Criticality Documentation Date Start Date Code Code System Note Provider Name and Address Organization Details Recorded Time methadone hydrochlo ride medicatio n Not available Not available Not available 03/24/20232002 68588 7 RxNorm Not Available [facility] 3 16:14:[address] sone sod phosph-wa ter medicatio n Not available Not available Not available 03/24/20232020 Not Available [facility] 3 16:14:11 51435 cranberry preparati on food,medi cation rash Not available [facility] 05/04/2023 16582 3 RxNorm OLIVER GAYTAN RN [facility], [facility] 3 14:38:50 13547 honey bee venom medicatio n Not available Not available unabletoasse 05/04/2023 37490 7 RxNorm OLIVER GAYTAN RN [facility], [facility] 3 14:39:31 Medications Name Sig Start Date Stop Date Status Note LastModified by Organization Details LastModified Time ibuprofen 800 mg tablet 1 tablet by mouth three times a day 09/26 completed Not Available Not Available Not Available Keflex 500 mg capsule Take 1 tab by mouth three times daily 11/17 completed [facility] ED2 Not Available Not Available Not Available metronidazo le 500 mg tablet Take 1 tablet by mouth three times a day 10/01 completed Not Available Not Available Not Available ciprofloxac in 250 mg tablet Take 1 by mouth twice daily 11/19 completed [facility] Not Available Not Available Not Available tramadol 50 mg tablet 1 TAB three times daily 09/14 completed Not Available Not Available Not Available propranolol 10 mg tablet Take 1 tablet twice a day by oral route. 2023 active Not Available Not Available Not Avai lable naproxen sodium 220 mg tablet Take 1 tablet by mouth twice a day 10/18 completed Not Available Not Available Not Available Nasonex 50 mcg/actuati on [place] 2 puffs qd 01/23 completed Not Available Not Available Not Available doxycycline hyclate 100 mg tablet Take 1 tablet every day by oral route for 10 days. 05/25 completed Not Available Not Available Not Available naproxen 500 mg tablet take 1 tablet by mouth twice a day active Not Available Not Available No t Available Flexeril 10 mg tablet 1 TAB at bedtime 09/12 completed Not Available Not Available Not Available Topamax 100 mg tablet Take 0.5 tablet by mouth once a day 09/16 completed Not Available Not Available Not Available cyclobenzap rine 5 mg tablet Take 1 tablet by mouth once a day as needed for pain 02/14 completed Not Available Not Available Not Available NAC 600 mg capsule Take 2 capsule by mouth twice a day take 2 with breakfast and 2 with dinner 02/14 completed Not Available Not Available Not Available MediHoney (honey) 100 % topical paste apply to skin once a day 10/22 completed Not Available Not Available Not Available magnesium 400 mg (as magnesium oxide) tablet Take 1 tablet by mouth once a day 07/07 completed Not Available Not Available Not Available Vitals Date Recorded Body height Body temperature Body mass index (BMI) Body weight Oxygen saturation Oxygen saturation in Arterial blood by Pulse oximetry Heart rate Systolic blood pressure Diastolic blood pressure Provider Name and Address Organization Details Last Updated DateTime 4 156.85 cm 97.8 [degF] 35.8 kg/m2 64431.3 2 g 99 % 99 % 79 /min 144 mm[Hg] 96 mm[Hg] VANESSA MORRSI CMA [facility] 4 08:38:19 Date Recorded Systolic blood pressure Diastolic blood pressure Provider Name and Address Organization Details Last Updated DateTime 03/18/2024 132 mm[Hg] 90 mm[Hg] ASHLYN GATICA APRN [address], [place], [address], [facility] 03/18/2024 08:58:25 Social History Question Answer Notes LastModified by Organizat ion Details LastModified Time Tobacco Smoking Status Former Smoker 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 10/23/2023 Information not available 10/23/2023 Has Tobacco Cessation Counseling Been Provided? Yes Information not available 10/23/2023 How Many Years Have You Smoked Tobacco? 18 Information not available 05/11/2023 Do You Or Have You Ever Used Any Other Forms Of Tobacco Or Nicotine? No Information not available 06/08/2023 Sex: Female Functional Status None recorded. Mental Status None recorded. Family History Nothing Reported Notes:*Problem: Mother - fermin ing- diabetes, HTN, pacemaker, hip replacements, ovarian CA Father- unknown; product of a one night stand. Siblings- 2, 1 brother and 1 sister. Brother- autism, sinus issues Sisiter-autism, heart problems Children- 3- Bree has autism HTN: yes HLD: yes CAD:no DM: yes Breast CA: no Colon CA: no Uterine/ ovarian CA: yes Medical History No medical history recorded. Gynecological HistoryNo gynecological history recorded. Obstetrics History GPAL:G 0 P 0 0 0 0 Immunizations Vaccine Type Date Status Provider Name and Address Organization Details Recorded Time Tdap 06/25/2012 completed Not Available [facility] 04:01:23 Td(adult) unspecified formulation 11/12/2017 completed Not Available [facility] 03/24/2023 04:01:24 Td(adult) unspecified formulation 01/09/2003 completed Not Available [facility] 03/24/2023 04:01:24 Influenza, split virus, quadrivalent, PF 02/14/2022 completed Not Available [facility] 03/24/2023 04:01:24 SARS-COV-2 (COVID-19) vaccine, UNSPECIFIED 07/22/2021 completed Not Available [facility] 03/24/2023 04:01:26 SARS-COV-2 (COVID-19) vaccine, UNSPECIFIED 09/16/2021 completed Not Available [facility] 03/24/2023 04:01:26 COVID-19, mRNA, LNP-S, bivalent, PF, 30 mcg/0.3 mL dose 02/14/2022 completed Not Available [facility] 03/24/2023 04:01:26 influenza, unspecified formulation 01/24/2012 completed Not Available [facility] 03/24/2023 04:01:27 Influenza, split virus, trivalent, PF 03/18/2024 completed VANESSA MORRIS FUEL CELL REPAIRER null, [facility] 03/18/2024 09:26:13 Influenza, split virus, quadrivalent, preservative 02/09/2023 completed VANESSA MORRIS CMA null, [facility] 04/27/2023 15:09:53 Influenza, split virus, quadrivalent, PF 02/09/2023 completed Not Available [facility] 05/26/2023 05:33:04 Past Encounters Encounter ID Performer Location Encounter Start Date Encounter Closed Date Diagnosis/Indication Diagnosis SNOMED-CT Code Diagnosis ICD10 Code [id number] ASHLYN GATICA[address] [address] 03/18/2024 08:30:55 03/18/2024 09:28:38 Essential hypertension 98968427 I10 Obesity 419661164 E66.9 Hirsutism 884075382 L68. 0 Tobacco user 882209698 Z 72.0 Constipation 99284862 K5 9.00 Adjustment disorder with mixed anxiety and depressed mood 501370944 F43.23 Pain of le ft knee joint 4405784287 86946 M25.562 Headache 55020181 R51.9 Pain in th oracic spine 972403694 M54.6 Chest pain 80079473 R07. 9 Active or passive immunization 979157235 Z23 Pain of ear 639739941 H9 2.09 Health Concerns Section Related Observation LastModified by Organization Detai ls LastModified Time None Recorded Concern Status LastModified by Organization Details LastModified Time None Recorded Payers Encounter Date Sequence Insurance Name Policy Number Policy Lott Covered Member ID Lott Member ID Guarantor Name 03/18/2024 1 [place]ICARE [place]: [employer] Melania Harvey [id number] Melania Harvey Notes Date Note Type Note Provider Name and Address Organization Details Recorded Time 03/18/2024 text/html Is here for complaints of ear pain. Was having sinus pressure, blew her nose, and felt a huge pop and gurlge to the left ear with feelings of drainage going down. The following day she was having stabbing pain and rhinitis. Having phonophobia This happened 8 days ago. It is slowly getting better, has been able to ignore the pain. if she blows her nose, she will have the pain. if she pops her jaw or swallows she will have left ear pain. Is not taking the pain. Not doing any compresses/ interventions for pain. HTN. without meds, declines. Has been encouraged to do DASH diet. Obesity. Has been counseled on weight loss through diet and exercise.-- update 03.18.24. has decreased food intake. Sometimes it is r/t food insecurity. Hirsutism. Acne. 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 Tobacco user. Has been encouraged for smoking cessation.-- update 10.23.23. vape free, sort of. Using MJ products for her back pain.-- update 03.18.24. Continues to smoke a little bit. Constipation. suspect r/t lack of fiber. Has been encouraged to work on diet mgmt.-- update 03.18.24. Adjustment disorder with mixed anxiety and depression. Panic disorder. Family stressors. insomnia. Without meds. Has seen counseling in past, not recently.-- update 10.23.23. sleep has been slightly better since doing hemp products. See ROS for mental health check in.-- update 03.18.24. Denies thoughts of suicide, hallucinations. stress has been pretty stressful. I am one step away of being homeless and a step and half from loosing the car. issues with SSI. Depressed no. anxious yes, I am anxious, who wouldn't be states overdue on bills. Feels coping some days. Knee pain. Bilateral. Chronic. Has seen ortho, no interventions to date. Was told needs knee replacements.-- update 10.23.23. Wasn't bad for last 1.5 months, until recently; the last 3 days, when the rain started. Prescription for naproxen has run out.-- update 03.18.24. knee pain is tolerable as long as she does not stress it. Headache.-- update 03.18.24. headaches after she gets off the phone with something that causes stress like after talking with someone about SSI. When she has the headache, she she makes a cup of tea and watches TV. Pain in thoracic spine. Scoliosis deformity of spine. Working with pain psychologist. Takes naproxen.-- update. 10.23.23. Back pain is not as bad as the knee pain. Not able to stay as active.-- update 03.18.24. unchanged, but states not doing much right now. ASHLYN GATICA, STATUARY PAINTER [address], [place], [address], [facility]. 03/18/2024 10:33:21 OBGyn Episode No OBEpisode recorded.
[2024-03-29 17:07] LABS: ALT 34 U/L (14-59); AST 28 U/L (15-37); Albumin 3.4 g/dL (3.4-5.0); Alkaline Phosphatase 121 U/L (46-116); Anion Gap 8.8 mmol/L (3-11); BUN 11 mg/dL (7-18); Bilirubin, Total 0.24 mg/dL (0.2-1.0); CO2 28.2 mmol/L (21.0-32.0); CREATININE 0.8 mg/dL (0.55-1.02); Calcium 9.1 mg/dL (8.5-10.1); Chloride 102 mmol/L (98-107); Estimated GFR 93.12 (mL/min/1.73m2); Glucose 108 mg/dL (74-106); Potassium 4.2 mmol/L (3.5-5.1); Sodium 139 mmol/L (136-145)
[2024-04-01 14:14] LABS: Magnesium 2.3 mg/dL (1.8-2.4); TSH (W/Ref FT4) 0.62 uIU/mL (0.36-3.74)
== END 2024-03-29 01:58 | disposition home or self-care (01) ==
LOC: LBO 01:57
PROVIDERS: PCP Nurse Practitioner Family; Visit Provider Nurse Practitioner Family
DX: R07.9 Chest pain, unspecified (principal)
CPT/HCPCS: 36415; 80053; 83036; 83735; 84443

== ENCOUNTER 2024-08-29 22:06 | Outpatient (REF) | payer MEDICARE, BC, SELFPAY ==
[2024-08-29 15:15] LABS: ALT 46 U/L (14-59); AST 27 U/L (15-37); Albumin 3.9 g/dL (3.4-5.0); Alkaline Phosphatase 111 U/L (46-116); Anion Gap 8.3 mmol/L (3-11); BUN 7 mg/dL (7-18); Bilirubin, Total 0.3 mg/dL (0.2-1.0); CO2 28.7 mmol/L (21.0-32.0); CREATININE 0.8 mg/dL (0.55-1.02); Calcium 9.3 mg/dL (8.5-10.1); Chloride 103 mmol/L (98-107); Estimated GFR 93.12 (mL/min/1.73m2); Glucose 78 mg/dL (74-106); Potassium 4.4 mmol/L (3.5-5.1); Sodium 140 mmol/L (136-145); Total Protein 7.8 g/dL (6.4-8.2); Vitamin D 25 Total 11 ng/mL (30-100)
[2024-08-29 16:04] LABS: GGT 33 U/L (5-55)
== END 2024-08-29 22:07 | disposition home or self-care (01) ==
LOC: NCHCN 22:06
PROVIDERS: PCP Nurse Practitioner Family; Visit Provider Nurse Practitioner Family
DX: R74.8 Abnormal levels of other serum enzymes (principal)
CPT/HCPCS: 80053; 82306; 82977

== ENCOUNTER 2024-09-05 11:37 | Emergency (ER) | payer MEDICARE, SELFPAY ==
[2024-09-05 11:41] VITALS: BP 167/110; PULSE 83; RESP 20; TEMP 36.2; O2SAT 98
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
--- NOTE | 2024-09-05 12:27 | DI.RAD_ITS ---
Exam(s) XR FOOT RT COMPLETE EXAM: XR FOOT RT COMPLETE CLINICAL HISTORY: Injury x 2 weeks. TECHNIQUE: 2D digital imaging was performed of the right foot. Three images were obtained. AP, obl ique and lateral views were obtained. COMPARISON: CR RIGHT FOOT COMPLETE from 04/17/2015 FINDINGS: BONES: No acute fracture is present. No bony destructive lesion is seen. There is an enthesophyte at the posterior calcaneus. JOINTS: No dislocation present. SOFT TISSUE: Normal. IMPRESSION: No evidence of an acute or healing fracture or dislocation. DATA REPOSITORY: RADIATION DOSE DELIVERED:
[2024-09-06 10:19] VITALS: BP 167/110; PULSE 83; RESP 20; TEMP 36.2; O2SAT 98
--- NOTE | 2024-09-07 10:32 | NUR.NOTE ---
Accessed chart to get the discharge diagnosis for [facility] billing purposes and to print a facesheet. Nursing Note:
== END 2024-09-05 13:17 | disposition home or self-care (01) ==
PROVIDERS: Emergency Provider Registered Nurse Emergency; PCP Nurse Practitioner Family
DX: S90.31XA Contusion of right foot, initial encounter (principal); X50.1XXA Overexertion from prolonged static or awkward postures, initial encounter; Y93.01 Activity, walking, marching and hiking; Y92.838 Other recreation area as the place of occurrence of the external cause
CPT/HCPCS: 99283; 73630

== ENCOUNTER 2025-03-03 13:32 | Outpatient (REF) | payer MEDICARE, SELFPAY ==
[2025-03-03 15:20] LABS: Glucose Negative (Negative)
[2025-03-03 15:36] LABS: COMMENT (LAB VIEW ONLY) 148.94 mg/dL; Microalb ug/mg Crea 8.5 ug/mg Cr
== END 2025-03-03 13:33 | disposition home or self-care (01) ==
LOC: NCHCN 13:32
PROVIDERS: PCP Nurse Practitioner Family; Visit Provider Nurse Practitioner Family
DX: I10 Essential (primary) hypertension (principal)
CPT/HCPCS: 81003; 82043; 82570

== ENCOUNTER 2025-03-17 09:58 | Outpatient (CLI) | payer MEDICARE, SELFPAY | END 2025-03-17 09:59 | disposition home or self-care (01) | PROVIDERS: PCP Nurse Practitioner Family; Visit Provider Nurse Practitioner Family | DX: R07.9 Chest pain, unspecified (principal) | CPT/HCPCS: 93246 ==

== ENCOUNTER 2025-05-09 10:31 | Outpatient (CLI) | payer MEDICARE, SELFPAY ==
--- NOTE | 2025-05-09 11:16 | W.CARDEVENT ---
Date of service: 05/09/25 Time of Service: 11:16 Cardiac Event Recorder Referring Provider:: Ashlyn Rhodes Indications:: Chest pain Cardiac Event Note: This is a cardiac event monitor. Patient was monitored for 7 days and 6 hours Rhythm throughout was sinus with an average heart rate of 91. Minimum was 55, maximum 144 There were no significant ventricular or supraventricular dysrhythmias There was no atrial fibrillation, no high-grade AV block, no pauses greater than 3 seconds. Symptoms correlated to sinus rhythm rate 94
== END 2025-05-09 10:32 | disposition home or self-care (01) ==
LOC: CARDOPNVT 10:31
PROVIDERS: PCP Nurse Practitioner Family; Visit Provider Internal Medicine Cardiovascular Disease
DX: R07.9 Chest pain, unspecified (principal)
CPT/HCPCS: 93248